=== PATIENT | female | born 1995 | race Caucasian/White ===

== ENCOUNTER 2017-01-19 17:50 | Emergency (ER) | payer OTHER ==
--- NOTE | 2017-01-19 18:39 | XR ---
EXAMINATION TYPE: XR chest 2V DATE OF EXAM: 01/19/2017 6:33 PM COMPARISON: NONE HISTORY: Fever and cough TECHNIQUE: Frontal and lateral views of the chest are obtained. FINDINGS: Heart and mediastinum are normal. Lungs are clear. Diaphragm is normal. Bony thorax is int act. IMPRESSION: Normal chest
[2017-01-19 18:46] LABS: Appearance,Urine Cloudy (Clear); Bacteria,Urine Rare /hpf; Bilirubin,Urine Negative (Negative); Glucose,Urine (UA) Negative (Negative); Ketones,Urine Negative (Negative); Leukocyte Esterase,Urine Negative (Negative); Mucus,Urine Rare /hpf; Nitrite,Urine Negative (Negative); PH, Urine 6.5 (5.0-8.0); Particle Count 5733; Protein,Urine Negative (Negative); RBC,Urine 1 /hpf (0-5); Specific Gravity,Urine 1.014 (1.001-1.035); Squamous Epithelial Cell,Urine 9 /hpf (0-4); UA Billing (MACRO vs. MICRO) MICRO; Urobilinogen,Urine <2.0 mg/dL (<2.0); WBC,Urine 1 /hpf (0-5)
[2017-01-19] MEDS ORDERED: IBUPROFEN 600 MG TAB PO STA (18:53)
--- NOTE | 2017-01-19 18:57 | ED ---
General Adult HPI - General Chief complaint: Fever Stated complaint: congestion Time Seen by Provider: 01/19/17 18:01 Source: patient Mode of arrival: ambulatory Limitations: no limitations - History of Present Illness Initial comments: Patient is a 21-year-old female presenting to the emergency department with initial chief complaint of cough and congestion for approximately 2 days. She also reports that she's had a fever. She denies taking any medications. She states that she has had a lot of congestion. Patient reports that she is somewhat new to the area. She states that she was born in [place]. As I interviewed the patient, she reported that she is able to feel in sense other people and other surroundings. She reports that she can feel other peoples pain. She states that she is trying to get her life together but she feels as if she needs a psychiatrist. She denies any suicidal or homicidal ideations. Patient reports that she does have auditory hallucinations. She does not seek a psychiatrist at this time. Patient reports that she was brought to the emergency department by her uncle. As interviewing the patient she would change her tone of voice with different sentances, and speak in a [place] Accent occasionally. - Related Data Previous Rx's Medication Instructions Recorded Azithromycin [Zithromax Z-pack] 250 mg PO DIRECTED #6 tab 01/19/17 Ibuprofen [Motrin] 600 mg PO Q6HR PRN #20 tab 01/19/17 Allergies Allergy/AdvReac Type Severity Reaction Status Date / Time No Known Allergies Allergy Verified 01/19/17 18:20 Review of Systems ROS Statement: Those systems with pertinent positive or pertinent negative responses have been documented in the HPI. ROS Other: All systems not noted in ROS Statement are negative. Past Medical History Past Medical History: No Reported History History of Any Multi-Drug Resistant Organisms: None Reported Past Surgical History: No Surgical Hx Reported Past Psychological History: No Psychological Hx Reported Smoking Status: Current every day smoker Past Alcohol Use History: Occasional Past Drug Use History: None Reported General Exam - General Exam Comments Initial Comments: 21 year old female, no acute distress. Limitations: no limitations General appearance: alert, in no apparent distress Head exam: Present: atraumatic, normocephalic, normal inspection Eye exam: Present: normal appearance, PERRL, EOMI. Absent: scleral icterus, conjunctival injection, periorbital swelling ENT exam: Present: normal exam, mucous membranes moist Neck exam: Present: normal inspection. Absent: tenderness, meningismus, lymphadenopathy Respiratory exam: Present: normal lung sounds bilaterally. Absent: respiratory distress, wheezes, rales, rhonchi, stridor Cardiovascular Exam: Present: regular rate, normal rhythm, normal heart sounds. Absent: systolic murmur, diastolic murmur, rubs, gallop, clicks GI/Abdominal exam: Present: soft, normal bowel sounds. Absent: distended, tenderness, guarding, rebound, rigid Extremities exam: Present: normal inspection, full ROM, normal capillary refill. Absent: tenderness, pedal edema, joint swelling, calf tenderness Back exam: Present: normal inspection, full ROM Neurological exam: Present: alert, oriented X3, CN II-XII intact Psychiatric exam: Present: normal mood, depressed. Absent: normal affect ( Patient has a flat affect. She seems to be responding to internal stimuli.), agitated, anxious, flat affect, manic, homicidal ideation, suicidal ideation Skin exam: Present: warm, dry, intact, normal color. Absent: rash Course Vital Signs 01/19/17 01/19/17 17:57 20:22 Temperature 99.8 F H 98.0 F Pulse Rate 94 83 Respiratory 20 18 Rate Blood Pressure 139/74 123/71 O2 Sat by Pulse 99 99 Oximetry Medical Decision Making - Medical Decision Making Patient is a 21-year-old Female with initial complaint of cough, chest congestion and fever. Influenza screen is negative. Chest x-ray was reviewed to be negative. While the patient was being interviewed it did appear The patient is here that she had been responding to internal stimuli. She reports that she needs to see psychiatrist. She does not have any counselous or menal health professionals at this time or takes any medications. She denies any suicidal or homicidal ideations. Patient will kept repeating to me that she can feel other peoples sensations in pain and needs to heal herself in order to be able to heal others. Patient does appear to be unkempt. Patient was cleared for psych evaluation. AFter evaluation, psychiatrist states that patient can follow up with outpatient treatment. Patient given resources and promises to follow up. She adamently denies suicidal ideation and homicidal ideation, she agrees to safety contract. She will be placed on azithromycin for cough and given Motrin for her fever. Patient understands treatment plan and will comply. - Lab Data Lab Results 01/19/17 01/19/17 01/19/17 Range/Units 18:10 18:20 18:26 Urine Color Urine Appearance (Clear) Urine pH (5.0-8.0) Ur Specific [place] (1.001-1.035) Urine Protein (Negative) Urine Glucose (UA) (Negative) Urine Ketones (Negative) Urine Blood (Negative) Urine Nitrate (Negative) Urine Bilirubin (Negative) Urine Urobilinogen (<2.0) mg/dL Ur Leukocyte Esterase (Negative) Urine RBC (0-5) /hpf Urine WBC (0-5) /hpf Ur Squamous Epith Cells (0-4) /hpf Urine Bacteria (None) /hpf Urine Mucus (None) /hpf Urine HCG, Qual Not Detected (Not Detectd) Urine Opiates Screen Not Detected (NotDetected) Ur Oxycodone Screen Not Detected (NotDetected) Urine Methadone Screen Not Detected (NotDetected) Ur Propoxyphene Screen Not Detected (NotDetected) Ur Barbiturates Screen Not Detected (NotDetected) U Tricyclic Antidepress Not Detected (NotDetected) Ur Phencyclidine Scrn Not Detected (NotDetected) Ur Amphetamines Screen Not Detected (NotDetected) U Methamphetamines Scrn Not Detected (NotDetected) U Benzodiazepines Scrn Not Detected (NotDetected) Urine Cocaine Screen Not Detected (NotDetected) U Marijuana (THC) Screen Not Detected (NotDetected) Influenza Type A RNA Not Detected (Not Detectd) Influenza Type B (PCR) Not Detected (Not Detectd) 01/19/17 Range/Units 18:26 Urine Color Yellow Urine Appearance Cloudy H (Clear) Urine pH 6.5 (5.0-8.0) Ur Specific [place] 1.014 (1.001-1.035) Urine Protein Negative (Negative) Urine Glucose (UA) Negative (Negative) Urine Ketones Negative (Negative) Urine Blood Negative (Negative) Urine Nitrate Negative (Negative) Urine Bilirubin Negative (Negative) Urine Urobilinogen <2.0 (<2.0) mg/dL Ur Leukocyte Esterase Negative (Negative) Urine RBC 1 (0-5) /hpf Urine WBC 1 (0-5) /hpf Ur Squamous Epith Cells 9 H (0-4) /hpf Urine Bacteria Rare H (None) /hpf Urine Mucus Rare H (None) /hpf Urine HCG, Qual (Not Detectd) Urine Opiates Screen (NotDetected) Ur Oxycodone Screen (NotDetected) Urine Methadone Screen (NotDetected) Ur Propoxyphene Screen (NotDetected) Ur Barbiturates Screen (NotDetected) U Tricyclic Antidepress (NotDetected) Ur Phencyclidine Scrn (NotDetected) Ur Amphetamines Screen (NotDetected) U Methamphetamines Scrn (NotDetected) U Benzodiazepines Scrn (NotDetected) Urine Cocaine Screen (NotDetected) U Marijuana (THC) Screen (NotDetected) Influenza Type A RNA (Not Detectd) Influenza Type B (PCR) (Not Detectd) Disposition Clinical Impression: Upper respiratory infection, Fever Disposition: HOME SELF-CARE Condition: Good Instructions: Fever in Adults (ED) Additional Instructions: Patient arrives to follow-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 Complete antibiotic prescription and take Tylenol as instructed. Return to the emergency department if any alarming signs or symptoms occur. Prescriptions: Azithromycin [Zithromax Z-pack] 250 mg PO DIRECTED #6 tab Ibuprofen [Motrin] 600 mg PO Q6HR PRN #20 tab PRN Reason: Fever Referrals: Tenisha Lancaster MD [STAFF PHYSICIAN] - 1-2 days Time of Disposition: 20:14
[2017-01-19 20:23] VITALS: BP 123/71; PULSE 83; RESP 18; TEMP 98
== END 2017-01-19 20:23 | disposition home or self-care (01) ==
LOC: EC 17:50
DX: J06.9 Acute upper respiratory infection, unspecified (principal); R44.0 Auditory hallucinations; F17.200 Nicotine dependence, unspecified, uncomplicated
CPT/HCPCS: 71020; 80306; 81001; 81025; 82075; 87502; 99283

== ENCOUNTER 2017-04-18 11:03 | Inpatient (IN) | payer MEDICAID, OTHER ==
[2017-04-18] MEDS ORDERED: LORazepam 2 MG/ML SYRINGE IV STA (11:22)
--- NOTE | 2017-04-18 12:00 | ED ---
General Adult HPI - General Chief complaint: Psychiatric Symptoms Stated complaint: mental health Time Seen by Provider: 04/18/17 11:21 Source: patient, police, RN notes reviewed, old records reviewed Mode of arrival: ambulatory Limitations: no limitations - History of Present Illness Initial comments: Chief complaint and history of present illness this is a 21-year-old female on no court-ordered pickup for mental health evaluation. Patient states she does not know why she is here. In referencing the court-ordered pickup grandmother stated that she didn't observed jennifer putting Epsom salts and rubbing alcohol into her food because "" it cleanses her inside the body. Her grandmother is also observed her sitting in a quiet room not watching TV are talking to anyone then she'll begin laughing for no reason and does not make sense when asked about it. Patient did admit to me that she has heard voices and seeing things. But refuses to say what what the voices tell her to do or what she sees. Grandmother also states that she paces the hallway at home without expiration. Grandmother also states) he has a history of using drugs including meth and pain pills for 5 years apparently not currently using meth but she does still prescription medications and does not matter to her what kind she steals grandmother even says that she shoots Epsom salts in her arms. Grandmother also states that after the family dog was hit by a car and killed jennifer dug up the buried dog and cut the dog open remove this intestine was cooked it and ate it. The patient is also resisted going to any [facility] for further evaluation so she was ordered by Court pickup for evaluation in the emergency room. - Related Data Home Medications Medication Instructions Recorded Confirmed No Known Home Medications [No 04/18/17 04/18/17 Known Home Medications] Allergies Allergy/AdvReac Type Severity Reaction Status Date / Time No Known Allergies Allergy Verified 04/18/17 12:40 Review of Systems ROS Statement: Those systems with pertinent positive or pertinent negative responses have been documented in the HPI. Review of systems at this time the patient denies any irregularities denies doing drugs denies chest pain shows breath GI/ problems. She does admit to hearing voices and seeing things. Denies having any mental health issues in the past. Denies doing drugs. All systems reviewed patient denies any chronic medical problems no chronic medical problems denies any surgeries. Denies any ALLERGIES. Denies taking any medications. Does not know of any ankle problems in the family. She does admit to smoking and occasional alcohol use ROS Other: All systems not noted in ROS Statement are negative. Past Medical History Past Medical History: No Reported History History of Any Multi-Drug Resistant Organisms: None Reported Past Surgical History: No Surgical Hx Reported Past Psychological History: No Psychological Hx Reported Smoking Status: Current every day smoker Past Alcohol Use History: Occasional Past Drug Use History: None Reported General Exam - General Exam Comments Initial Comments: General: The patient is awake and alert, in no distress, and does not appear acutely ill. Patient appears calm. Does not Set with questions concerning past behavior. [id number] denies any problems in the past or current. Vital signs temp 99.2 pulse 87 respiratory rate 20 pulse ox 100% room air blood pressure 129/70 Eye: Pupils are equal, round and reactive to light, extra-ocular movements are intact ; there is normal conjunctiva bilaterally. No signs of icterus. Ears, nose, mouth and throat: There are moist mucous membranes . Neck: The neck is supple, there is no tenderness no anterior cervical lymphadenopathy , thyroid not enlarged. Cardiovascular: There is a regular rate and rhythm. No murmur, rub or gallop is appreciated. Respiratory: Lungs are clear to auscultation, respirations are non-labored, breath sounds are equal. No wheezes, stridor, rales, or rhonchi. Gastrointestinal: Soft, non-distended, non-tender abdomen without masses or organomegaly noted. There is no rebound or guarding present. No CVA tenderness. Bowel sounds are unremarkable. Back: There is no tenderness to palpation in the midline. There is no obvious deformity. No rashes noted. Patient has a tattoo in the middle of her back. Musculoskeletal: Normal ROM, no tenderness, There is no pedal edema. There is no calf tenderness or swelling. Sensation intact. Pulses equal bilaterally 2+. Neurological: CN II-XII intact, There are no obvious motor or sensory deficits. Coordination appears grossly intact. Speech is normal. No evidence of any focal or lateralizing findings. Skin: Skin is warm and dry and no rashes or lesions are noted. Psychiatric: Cooperative, denies being depressed or suicidal. He does agree that she hears voices and sees things. Denies any past mental health issues. Limitations: no limitations Course Vital Signs 04/18/17 11:16 Temperature 99.2 F Pulse Rate 87 Respiratory 20 Rate Blood Pressure 129/70 O2 Sat by Pulse 100 Oximetry Medical Decision Making - Medical Decision Making Medical decision making; the patient's here for psychiatric evaluation, court ordered. She's also been doing some bizarre behavior with chemicals she reportedly is putting on her body in her food. The patient's labs show toxicology negative for drugs of abuse. No aspirin or Tylenol. Urine is clean no signs of infection. Urine test negative. White count 9 hemoglobin 14 hematocrit 42. Alcohol 0.patient's potassium is 4.2 with a BUN 15 creatinine 0.76 GFR greater than 60. Anus TM ALT both elevated. The patient was evaluated by the psychiatric nurse patient be admitted to [facility]. I completed a certificate for admission. - Lab Data Result diagrams: 04/18/17 11:47 04/18/17 11:47 Lab Results 04/18/17 04/18/17 04/18/17 Range/Units 11:47 11:47 11:47 WBC 9.5 (3.8-10.6) k/uL RBC 4.88 (3.80-5.40) m/uL Hgb 14.2 (11.4-16.0) gm/dL Hct 42.8 (34.0-46.0) % MCV 87.7 (80.0-100.0) fL MCH 29.2 (25.0-35.0) pg MCHC 33.3 (31.0-37.0) g/dL RDW 13.6 (11.5-15.5) % Plt Count 391 (150-450) k/uL Neutrophils % 56 % Lymphocytes % 30 % Monocytes % 6 % Eosinophils % 3 % Basophils % 1 % Neutrophils # 5.3 (1.3-7.7) k/uL Lymphocytes # 2.9 (1.0-4.8) k/uL Monocytes # 0.6 (0-1.0) k/uL Eosinophils # 0.3 (0-0.7) k/uL Basophils # 0.1 (0-0.2) k/uL Sodium (137-145) mmol/L Potassium (3.5-5.1) mmol/L Chloride (98-107) mmol/L Carbon Dioxide (22-30) mmol/L Anion Gap mmol/L BUN (7-17) mg/dL Creatinine (0.52-1.04) mg/dL Est GFR (MDRD) Af Amer (>60 ml/min/1.73 sqM) Est GFR (MDRD) Non-Af (>60 ml/min/1.73 sqM) Glucose (74-99) mg/dL Calcium (8.4-10.2) mg/dL Total Bilirubin (0.2-1.3) mg/dL AST (14-36) U/L ALT (9-52) U/L Alkaline Phosphatase (38-126) U/L Total Protein (6.3-8.2) g/dL Albumin (3.5-5.0) g/dL Urine Color Yellow Urine Appearance Cloudy H (Clear) Urine pH 7.0 (5.0-8.0) Ur Specific [place] 1.015 (1.001-1.035) Urine Protein Negative (Negative) Urine Glucose (UA) Negative (Negative) Urine Ketones Negative (Negative) Urine Blood Negative (Negative) Urine Nitrite Negative (Negative) Urine Bilirubin Negative (Negative) Urine Urobilinogen <2.0 (<2.0) mg/dL Ur Leukocyte Esterase Negative (Negative) Urine WBC <1 (0-5) /hpf Ur Squamous Epith Cells 18 H (0-4) /hpf Urine Bacteria Rare H (None) /hpf Urine Mucus Rare H (None) /hpf Urine HCG, Qual (Not Detectd) Salicylates <1.0 mg/dL Urine Opiates Screen Not Detected (NotDetected) Ur Oxycodone Screen Not Detected (NotDetected) Urine Methadone Screen Not Detected (NotDetected) Ur Propoxyphene Screen Not Detected (NotDetected) Acetaminophen <10.0 ug/mL Ur Barbiturates Screen Not Detected (NotDetected) U Tricyclic Antidepress Not Detected (NotDetected) Ur Phencyclidine Scrn Not Detected (NotDetected) Ur Amphetamines Screen Not Detected (NotDetected) U Methamphetamines Scrn Not Detected (NotDetected) U Benzodiazepines Scrn Not Detected (NotDetected) Urine Cocaine Screen Not Detected (NotDetected) U Marijuana (THC) Screen Not Detected (NotDetected) 04/18/17 04/18/17 Range/Units 11:47 11:47 WBC (3.8-10.6) k/uL RBC (3.80-5.40) m/uL Hgb (11.4-16.0) gm/dL Hct (34.0-46.0) % MCV (80.0-100.0) fL MCH (25.0-35.0) pg MCHC (31.0-37.0) g/dL RDW (11.5-15.5) % Plt Count (150-450) k/uL Neutrophils % % Lymphocytes % % Monocytes % % Eosinophils % % Basophils % % Neutrophils # (1.3-7.7) k/uL Lymphocytes # (1.0-4.8) k/uL Monocytes # (0-1.0) k/uL Eosinophils # (0-0.7) k/uL Basophils # (0-0.2) k/uL Sodium 141 (137-145) mmol/L Potassium 4.2 (3.5-5.1) mmol/L Chloride 104 (98-107) mmol/L Carbon Dioxide 27 (22-30) mmol/L Anion Gap 10 mmol/L BUN 15 (7-17) mg/dL Creatinine 0.76 (0.52-1.04) mg/dL Est GFR (MDRD) Af Amer >60 (>60 ml/min/1.73 sqM) Est GFR (MDRD) Non-Af >60 (>60 ml/min/1.73 sqM) Glucose 97 (74-99) mg/dL Calcium 10.2 (8.4-10.2) mg/dL Total Bilirubin 0.6 (0.2-1.3) mg/dL AST 64 H (14-36) U/L ALT 110 H (9-52) U/L Alkaline Phosphatase 72 (38-126) U/L Total Protein 8.6 H (6.3-8.2) g/dL Albumin 4.6 (3.5-5.0) g/dL Urine Color Urine Appearance (Clear) Urine pH (5.0-8.0) Ur Specific [place] (1.001-1.035) Urine Protein (Negative) Urine Glucose (UA) (Negative) Urine Ketones (Negative) Urine Blood (Negative) Urine Nitrite (Negative) Urine Bilirubin (Negative) Urine Urobilinogen (<2.0) mg/dL Ur Leukocyte Esterase (Negative) Urine WBC (0-5) /hpf Ur Squamous Epith Cells (0-4) /hpf Urine Bacteria (None) /hpf Urine Mucus (None) /hpf Urine HCG, Qual Not Detected (Not Detectd) Salicylates mg/dL Urine Opiates Screen (NotDetected) Ur Oxycodone Screen (NotDetected) Urine Methadone Screen (NotDetected) Ur Propoxyphene Screen (NotDetected) Acetaminophen ug/mL Ur Barbiturates Screen (NotDetected) U Tricyclic Antidepress (NotDetected) Ur Phencyclidine Scrn (NotDetected) Ur Amphetamines Screen (NotDetected) U Methamphetamines Scrn (NotDetected) U Benzodiazepines Scrn (NotDetected) Urine Cocaine Screen (NotDetected) U Marijuana (THC) Screen (NotDetected) Disposition Clinical Impression: Psychosis, paranoid Disposition: TRANSFER TO PSYCH HOSP/UNIT Condition: Serious Referrals: None,Stated [Primary Care Provider] - 1-2 days
[2017-04-18 12:14] LABS: Appearance,Urine Cloudy (Clear); Bacteria,Urine Rare /hpf; Bilirubin,Urine Negative (Negative); Glucose,Urine (UA) Negative (Negative); Ketones,Urine Negative (Negative); Leukocyte Esterase,Urine Negative (Negative); Mucus,Urine Rare /hpf; Nitrite,Urine Negative (Negative); Particle Count 2849; Protein,Urine Negative (Negative); Specific Gravity,Urine 1.015 (1.001-1.035); Squamous Epithelial Cell,Urine 18 /hpf (0-4); UA Billing (MACRO vs. MICRO) MICRO; Urobilinogen,Urine <2.0 mg/dL (<2.0); WBC,Urine <1 /hpf (0-5)
[2017-04-18 12:17] LABS: Acetaminophen <10.0 ug/mL; Salicylate <1.0 mg/dL
[2017-04-18 12:18] LABS: Basophils # (A) 0.1 k/uL (0-0.2); Basophils % (A) 1 %; CHCM 33.2; Eosinophils # (A) 0.3 k/uL (0-0.7); Eosinophils % (A) 3 %; HCT 42.8 % (34.0-46.0); HDW 2.51; HGB 14.2 gm/dL (11.4-16.0); Luc # (Auto) 0.33; Luc % (Auto) 4; Lymphocytes # (A) 2.9 k/uL (1.0-4.8); Lymphocytes % (A) 30 %; MCH 29.2 pg (25.0-35.0); MCHC 33.3 g/dL (31.0-37.0); MCV 87.7 fL (80.0-100.0); Mean Platelet Volume 6.3; Monocytes # (A) 0.6 k/uL (0-1.0); Monocytes % (A) 6 %; Neutrophils # (A) 5.3 k/uL (1.3-7.7); Neutrophils % (A) 56 %; RBC 4.88 m/uL (3.80-5.40); RDW 13.6 % (11.5-15.5); WBC 9.5 k/uL (3.8-10.6); WBC (Perox) 8.76
--- NOTE | 2017-04-18 12:27 | XR ---
EXAMINATION TYPE: XR chest 1V portable DATE OF EXAM: 04/18/2017 HISTORY: Short of breath. REFERENCE: Previous study dated 01/19/2017. FINDINGS: The lungs are clear. Pleural space are clear. Heart size is normal. IMPRESSION: NORMAL CHEST.
[2017-04-18 13:38] LABS: ALT 110 U/L (9-52); AST 64 U/L (14-36); Alkaline Phosphatase 72 U/L (38-126); Anion Gap 10 mmol/L; Blood Urea Nitrogen 15 mg/dL (7-17); Calcium 10.2 mg/dL (8.4-10.2); Carbon Dioxide 27 mmol/L (22-30); Chloride 104 mmol/L (98-107); Glucose 97 mg/dL (74-99); Non-African American GFR(MDRD) >60 (>60 ml/min/1.73 sqM); Potassium 4.2 mmol/L (3.5-5.1); Sodium 141 mmol/L (137-145); Total Bilirubin 0.6 mg/dL (0.2-1.3); Total Protein 8.6 g/dL (6.3-8.2)
[2017-04-18] MEDS ORDERED: ZIPRASIDONE 20 MG VIAL IM PRN (17:08)
[2017-04-18] MEDS ORDERED: MAGNESIUM HYDROXIDE 2,400 MG/10 ML CUP PO PRN (17:08)
[2017-04-18] MEDS ORDERED: LORazepam 1 MG TAB PO PRN (17:08)
[2017-04-18] MEDS ORDERED: MAG HYDROX/AL HYDROX/SIMETH 30 ML CUP PO PRN (17:08)
[2017-04-18] MEDS ORDERED: LORazepam 2 MG/ML SYRINGE IM PRN (17:12)
[2017-04-18] MEDS: NICOTINE 7MG/24HR PATCH TRANSDERM SCH (18:16)
[2017-04-19] MEDS: NICOTINE 7MG/24HR PATCH TRANSDERM SCH (09:46)
[2017-04-19 10:08] LABS: Basophils # (A) 0.1 k/uL (0-0.2); Basophils % (A) 1 %; CH 28.6; Eosinophils # (A) 0.3 k/uL (0-0.7); Eosinophils % (A) 3 %; HCT 46.7 % (34.0-46.0); HDW 2.38; HGB 14.6 gm/dL (11.4-16.0); Luc # (Auto) 0.19; Luc % (Auto) 2; Lymphocytes # (A) 2.6 k/uL (1.0-4.8); Lymphocytes % (A) 30 %; MCHC 31.2 g/dL (31.0-37.0); MCV 89.9 fL (80.0-100.0); Mean Platelet Volume 6.3; Monocytes # (A) 0.5 k/uL (0-1.0); Monocytes % (A) 5 %; Neutrophils # (A) 5.2 k/uL (1.3-7.7); Neutrophils % (A) 59 %; RBC 5.19 m/uL (3.80-5.40); RDW 13.7 % (11.5-15.5); WBC 8.8 k/uL (3.8-10.6); WBC (Perox) 9.17
[2017-04-19 10:41] LABS: ALT 127 U/L (9-52); AST 73 U/L (14-36); Alkaline Phosphatase 70 U/L (38-126); Anion Gap 14 mmol/L; Blood Urea Nitrogen 18 mg/dL (7-17); Calcium 10.4 mg/dL (8.4-10.2); Carbon Dioxide 26 mmol/L (22-30); Chloride 102 mmol/L (98-107); Glucose 102 mg/dL (74-99); Non-African American GFR(MDRD) >60 (>60 ml/min/1.73 sqM); Potassium 3.9 mmol/L (3.5-5.1); Sodium 142 mmol/L (137-145); Total Protein 8.8 g/dL (6.3-8.2)
[2017-04-19] MEDS ORDERED: risperiDONE 1 MG TAB PO STA (13:25)
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
--- NOTE | 2017-04-19 15:52 | P.CONS ---
History of Present Illness - Reason for Consult Consult date: 04/19/17 Medical management - History of Present Illness This is a 21-year-old female with no past medical history and no primary care physician. She is a tobacco smoker. She denies any history of psychiatric problems or psychiatric admissions. She does have history of methamphetamine use but denies any use recently. Patient states that she was picked up by the cell coverer and brought in the hospital and she does not know why. She denies any depression, suicidal thoughts, homicidal thoughts. AST 73, ALT 127. TSH 1.150. Urinalysis was cloudy, nitrate and leukoesterase negative. Urine drug screen was negative. Review of Systems All systems: negative Constitutional: Denies chills, Denies fever Eyes: denies blurred vision, denies pain Ears, nose, mouth and throat: Denies headache, Denies sore throat Cardiovascular: Denies chest pain, Denies shortness of breath Respiratory: Denies cough Gastrointestinal: Denies abdominal pain, Denies diarrhea, Denies nausea, Denies vomiting Genitourinary: Denies dysuria, Denies hematuria Musculoskeletal: Denies myalgias Integumentary: Denies pruritus, Denies rash Neurological: Denies numbness, Denies weakness Psychiatric: Denies anxiety, Denies depression Endocrine: Denies fatigue, Denies weight change Past Medical History Past Medical History: No Reported History History of Any Multi-Drug Resistant Organisms: None Reported Past Surgical History: No Surgical Hx Reported Past Psychological History: No Psychological Hx Reported Smoking Status: Current every day smoker Past Alcohol Use History: Occasional Additional Past Alcohol Use History / Comment(s): Patient is a smoker of a half a pack per day since she was 9 years of age. She denies any medical marijuana , marijuana, street drug or alcohol use. She does have history of methamphetamine use. Past Drug Use History: None Reported - Past Family History Father Additional Family Medical History / Comment(s): Father is alive in his 50s with no major medical problems. Mother Additional Family Medical History / Comment(s): Mother is alive at age 57 with no major medical problems. Patient does not have any brothers or sisters. Patient does not have any children. Medications and Allergies Home Medications Medication Instructions Recorded Confirmed Type No Known Home Medications [No 04/18/17 04/18/17 History Known Home Medications] Allergies Allergy/AdvReac Type Severity Reaction Status Date / Time No Known Allergies Allergy Verified 04/18/17 17:24 Physical Exam Vitals: Vital Signs Temp Pulse Pulse Resp BP BP Pulse Ox 04/19/17 06:53 97.9 F 72 16 106/55 04/18/17 17:26 98.3 F 84 20 120/79 04/18/17 16:14 98.7 F 84 18 148/83 99 Gen: This is a 21-year-old female. She appears to be in no acute distress. HEENT: Head is atraumatic, normocephalic. Pupils equal, round. Sclerae is anicteric. NECK: Supple. No JVD. No lymphadenopathy. No thyromegaly. LUNGS: Clear to auscultation. No wheezes or rhonchi. No intercostal retractions. HEART: Regular rate and rhythm. No murmur. ABDOMEN: Soft. Bowel sounds are present. No masses. No tenderness. EXTREMITIES: No pedal edema. No calf tenderness. NEUROLOGICAL: Patient is awake, alert and oriented x3. Cranial nerves 2 through 12 are grossly intact. Results CBC & Chem 7: 04/19/17 09:52 04/19/17 09:52 Labs: Abnormal Lab Results - Last 24 Hours (Table) 04/18/17 04/19/17 04/19/17 Range/Units 11:47 09:52 09:52 Hct 46.7 H (34.0-46.0) % BUN 18 H (7-17) mg/dL Glucose 102 H (74-99) mg/dL Calcium 10.4 H (8.4-10.2) mg/dL AST 64 H 73 H (14-36) U/L ALT 110 H 127 H (9-52) U/L Total Protein 8.6 H 8.8 H (6.3-8.2) g/dL Assessment and Plan Plan: 1. Psychotic behavior. Patient admitted to the mental health unit. Continue current plan of care. 2. Tobacco use and dependence. Continue nicotine patch. 3. Previous methamphetamine use and patient denies any active drug use. Impression and plan of care have been directed as dictated by the signing physician. Elvira Rivera nurse practitioner acting as scribe for signing physician.
[2017-04-19] MEDS ORDERED: risperiDONE 1 MG TAB PO SCH (21:00)
[2017-04-20] MEDS: NICOTINE 7MG/24HR PATCH TRANSDERM SCH (10:01)
[2017-04-20 12:53] LABS: GGT 34 U/L (12-43)
[2017-04-20 12:56] LABS: INR 1.1 (<1.1); Partial Thromboplastin Time 24.2 sec (22.0-30.0); Prothrombin Time 10.6 sec (9.0-12.0)
[2017-04-20 13:24] LABS: Hepatitis B Surface Ag Index 0.08
[2017-04-20 13:30] LABS: Hepatitis B Core IgM Index 0.29
[2017-04-20 13:41] LABS: Hepatitis C Virus IgG Ab Reactive (Negative)
--- NOTE | 2017-04-20 14:18 | P.PN ---
Progress Note - Text INTERVERAL HISTORY: Patient in room, came when called. Little eye contact. Answering questions with yes or I don't know. When asked about her sleep last night, she mumbled something then stated " bright eyed and busy tailed" When asked about past hx of depression, anxiety or schizophrenia, she answered "all of them", could not recall names of medication but then stated "I don't take medications" no reason given. MENTAL STATUS EXAM: Patient alert and oriented 2, poor eye contact, poorly groomed and disheveled, hair uncombed, dirty, in street clothing. Speech low volume, reduced rate and production, no spontaneous speech answering with yes, no, I don't know, maybe, not sure. +paucity of thought and content Uninteligble, mumbling, when asked to repeat will say "yes, no" +TB +responding to internal stimuli, initially said yes to auditory hallucination but then said she did not know. . Memory impaired Cognition low average Unable to test for memory. Mood blunted, affect flat, congruent with mood. Denies suicidal ideation, denies homicidal ideation. Insight none; Judgment impaired A: Patient continues with severe psychosis, responding to internal stimuli, thought blocking, paucity of thought and content. Psychosis unspecified Rule out schizophreniform Rule out schizoaffective disorder PLAN: . Patient continues to need inpatient psychiatric admission for safety, clarification of diagnosis, and treatment of psychosis. Suicide precautions, 15 minute checks. Start invega 3mg now, and daily. Will plan on using injection once clear she can tolerate and court ordered treatment. Encourage to attend groups if tolerating Have not been able to contact family, numbers on petition are not working.
[2017-04-20] MEDS: PALIPERIDONE 3 MG TAB.ER.24 PO SCH (14:32)
[2017-04-21] MEDS: PALIPERIDONE 3 MG TAB.ER.24 PO SCH (09:27)
[2017-04-21] MEDS: NICOTINE 7MG/24HR PATCH TRANSDERM SCH (09:46)
[2017-04-21 10:20] LABS: ALT 129 U/L (9-52); AST 78 U/L (14-36); Alkaline Phosphatase 62 U/L (38-126); Anion Gap 8 mmol/L; Blood Urea Nitrogen 15 mg/dL (7-17); Carbon Dioxide 26 mmol/L (22-30); Chloride 105 mmol/L (98-107); Glucose 86 mg/dL (74-99); Non-African American GFR(MDRD) >60 (>60 ml/min/1.73 sqM); Potassium 4.6 mmol/L (3.5-5.1); Sodium 139 mmol/L (137-145); Total Bilirubin 0.9 mg/dL (0.2-1.3); Total Protein 8.1 g/dL (6.3-8.2)
--- NOTE | 2017-04-21 17:01 | P.PN ---
Progress Note - Text Interval history: Patient seen in cross coverage today for Dr. Alcnatara. She reports that her mood is improved. She does not voice any adverse side effects. Sleep and appetite seem to be stable. Mental status exam: She is alert and cooperative. There may be some thought blocking at times. She describes her mood is doing better. She denies any thoughts of harm to self or others. She denies any hallucinations. She does not make any shun delusional statements. She does not show any agitation. Her answers are brief. Plan: Patient will be maintained on current psychotropic medication regimen. We 'll monitor for any side effects monitor her ongoing response. We'll continue to cover this patient for Dr. Alcantara through the weekend.
[2017-04-22] MEDS: NICOTINE 7MG/24HR PATCH TRANSDERM SCH (09:30)
[2017-04-22] MEDS: PALIPERIDONE 3 MG TAB.ER.24 PO SCH (09:31)
[2017-04-22 10:30] LABS: ALT 135 U/L (9-52); AST 75 U/L (14-36); Alkaline Phosphatase 66 U/L (38-126); Anion Gap 9 mmol/L; Blood Urea Nitrogen 16 mg/dL (7-17); Carbon Dioxide 25 mmol/L (22-30); Chloride 106 mmol/L (98-107); Glucose 85 mg/dL (74-99); Non-African American GFR(MDRD) >60 (>60 ml/min/1.73 sqM); Potassium 4.3 mmol/L (3.5-5.1); Sodium 140 mmol/L (137-145); Total Bilirubin 0.8 mg/dL (0.2-1.3); Total Protein 7.9 g/dL (6.3-8.2)
--- NOTE | 2017-04-22 13:42 | P.PN ---
Progress Note - Text Interval history: Patient is seen in cross coverage today in for Dr. Alcantara. She reports that she slept okay last night and is eating well. She is taking her invega and does not voice any adverse side effects. Mental status exam: She is alert and cooperative with the interview. Her answers are pretty brief. Her affect overall is restricted. She describes her mood as "decent." She denies any thoughts of harm to self or others. She denies any hallucinations. She does not make any shun delusional statements. She does not show any agitation. Plan: We'll maintain current psychotropic medication regimen. Dr. Alcantara to resume care this patient starting tomorrow.
[2017-04-23 08:10] LABS: ALT 133 U/L (9-52); AST 68 U/L (14-36); Alkaline Phosphatase 64 U/L (38-126); Anion Gap 9 mmol/L; Blood Urea Nitrogen 17 mg/dL (7-17); Calcium 10.1 mg/dL (8.4-10.2); Carbon Dioxide 27 mmol/L (22-30); Chloride 105 mmol/L (98-107); Glucose 89 mg/dL (74-99); Non-African American GFR(MDRD) >60 (>60 ml/min/1.73 sqM); Potassium 4.3 mmol/L (3.5-5.1); Sodium 141 mmol/L (137-145); Total Bilirubin 0.7 mg/dL (0.2-1.3); Total Protein 8.1 g/dL (6.3-8.2)
[2017-04-23] MEDS: PALIPERIDONE 3 MG TAB.ER.24 PO SCH (11:18)
[2017-04-23] MEDS: NICOTINE 7MG/24HR PATCH TRANSDERM SCH (11:19)
[2017-04-23] MEDS ORDERED: PALIPERIDONE IM 234 MG/1.5 ML SYG IM STA (11:26)
--- NOTE | 2017-04-23 11:42 | P.PN ---
Progress Note - Text INTERVERAL HISTORY: Discussed at treatment team meeting, reviewed record, met with patient. Patient signed for deferral. Patient seen at medication window, asked her to come to my office, she agreed, and then never came. Nursing staff found her back in her room in bed. Patient malodorous and disheveled. Little spontaneous speech. When asked questions still saying " well yes well no " Patient reported that she has to go to court, we discussed that she signed the deferral notice so that she doesn't have to go to court but that she has agreed to treatment. Discussed with her treatment plan that the medicine that she's been taking in a pill form will now be given to her as an injection, she agreed. Little eye contact. MENTAL STATUS EXAM: Patient alert and oriented 2, poor eye contact, poorly groomed and disheveled, malodorous, hair uncombed, dirty, in street clothing. Speech low volume, reduced rate and production, no spontaneous speech answering with yes, no, I don't know, maybe, not sure. +paucity of thought and content Uninteligble, mumbling, when asked to repeat will say "yes, no" +TB +responding to internal stimuli, Memory impaired Cognition low average Unable to test for memory. Mood blunted, affect flat, congruent with mood. Denies suicidal ideation, denies homicidal ideation. Insight none; Judgment impaired A: Patient continues with severe psychosis, responding to internal stimuli, thought blocking, paucity of thought and content. 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 Patient continues to need inpatient psychiatric admission for safety, clarification of diagnosis, and treatment of psychosis. Suicide precautions, 15 minute checks. Start invega 234IM now Continue PO paliperidone. AIMS negative Encourage to attend groups if tolerating SW to try to reach family for history. LFTs still evevated but decreasing.
[2017-04-24] MEDS: NICOTINE 7MG/24HR PATCH TRANSDERM SCH (10:10)
[2017-04-24] MEDS: PALIPERIDONE 3 MG TAB.ER.24 PO SCH (10:10)
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
[2017-04-25] MEDS: NICOTINE 7MG/24HR PATCH TRANSDERM SCH (10:55)
[2017-04-25] MEDS: PALIPERIDONE 3 MG TAB.ER.24 PO SCH (10:55)
--- NOTE | 2017-04-25 11:49 | P.PN ---
Progress Note - Text INTERVERAL HISTORY: Discussed at treatment team meeting, reviewed record, met with patient. Patient on deferral. Patient in her room did not respond to overhead page BRAKE RELINER went to her room and woke her up. Patient accompanied jingle writer to office, along the way asked patient if she knew my name, she said no. Told her my name, as I have every day. Patient states she is okay, has no questions, has no concerns or worries, doesn' t asked when she is getting out, She was oriented to Person, place, April 29 2017. 100-7 = 93-7 was 86-7 = 70 1-7 = 60 1-7 = 50 4-7 = 30 3-7 = 26-7 = 19-7 equals 14-7 = 6-7 = -1 3 out of 3 items recalled at 0 minutes; 2 out of 3 items recalled after 5 minutes. Unable to interpret "a rolling stone gathers no mathew" When patient was doing serial sevens she jumped up and walked over to the filing cabinet stood in front of it staring at the folders/binders. When asked why she did that she replied "I have to concentrate" Patient denies any problems with medication. Little spontaneous speech. Little eye contact. Not attending any groups, isolating from other patients. MENTAL STATUS EXAM: Patient alert and oriented 3, poor eye contact, poorly groomed, in street clothing. Speech low volume, reduced rate and production, no spontaneous speech answering with yes, no, I don't know, maybe, not sure. Trailing off, unfinished thoughts, +paucity of thought and content Unintelligible, mumbling, when asked to repeat will say "yes, no" +TB +responding to internal stimuli, Memory impaired Cognition low average Mood blunted, but patient is now smiling more often; affect flat, congruent with mood. Denies suicidal ideation, denies homicidal ideation. Insight none; Judgment impaired A: Patient continues with severe psychosis, responding to internal stimuli, thought blocking, paucity of thought and content. 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 Patient continues to need inpatient psychiatric admission for safety, clarification of diagnosis, and treatment of psychosis. Suicide precautions, 15 minute checks. invega shot due next Sunday. Continue PO paliperidone. AIMS negative Encourage to attend groups if tolerating
[2017-04-26] MEDS: PALIPERIDONE 3 MG TAB.ER.24 PO SCH (09:31)
[2017-04-26] MEDS: NICOTINE 7MG/24HR PATCH TRANSDERM SCH (09:31)
--- NOTE | 2017-04-26 11:53 | P.PN ---
Progress Note - Text INTERVERAL HISTORY: Discussed at treatment team meeting, reviewed record, met with patient. Patient on deferral. Patient was in the activity room today after activity I called her to the office she came. I asked her how she was she said fine and then asked "how are you" she was also able to remember my name. Patient smiled more today still did not have spontaneous speech, but when asked about how her visit was with family she stated it was fine, took about a minute to recall who came to visit her, said it was her uncles, could not recall what they spoke about. Today when asked about hearing voices she stopped to answer smiled, said no when I offered the possibility of maybe she smiled again and said maybe Patient is essentially unchanged however she is showing a little more affect and today she was able to interact in a socially appropriate way, asking how I was. Patient denies any problems with medication. Little spontaneous speech. Little eye contact. Seen in group today. MENTAL STATUS EXAM: Patient alert and oriented 3, poor eye contact, poorly groomed, in street clothing. Speech low volume, reduced rate and production, no spontaneous speech answering with yes, no, I don't know, maybe, not sure. Trailing off, unfinished thoughts, +paucity of thought and content Unintelligible, mumbling, when asked to repeat will say "yes, no" +TB +responding to internal stimuli, Memory impaired Cognition low average Mood blunted, but patient is now smiling more often; affect flat, congruent with mood. Denies suicidal ideation, denies homicidal ideation. Insight none; Judgment impaired A: Patient continues with severe psychosis, responding to internal stimuli, thought blocking, paucity of thought and content. 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 Patient continues to need inpatient psychiatric admission for safety and treatment of psychosis. Suicide precautions, 15 minute checks. invega shot due next Sunday. Continue PO paliperidone. AIMS negative Encourage to attend groups if tolerating
[2017-04-27] MEDS: NICOTINE 7MG/24HR PATCH TRANSDERM SCH (09:57)
[2017-04-27] MEDS: PALIPERIDONE 3 MG TAB.ER.24 PO SCH (09:57)
--- NOTE | 2017-04-27 10:08 | P.PN ---
Progress Note - Text INTERVERAL HISTORY: Discussed at treatment team meeting, reviewed record, met with patient. Patient on deferral. Patient was in bed refusing to get up. Patient asks when she can go home. Asked what she'll do, "I'll go home" Could not provide any other thought. Staff reports she is irritable today. Staff also noted that she attended a group yesterday, participated and was appropriate in her responses Patient denies any problems with medication. Little spontaneous speech. Little eye contact. MENTAL STATUS EXAM: Patient alert and oriented, poor eye contact, poorly groomed, in bed. Speech low volume, reduced rate and production, no spontaneous speech answering with yes, no, I don't know, maybe, not sure. Trailing off, unfinished thoughts, +paucity of thought and content Today unable to determine if responding to internal stimuli but reduced interaction. Memory impaired Cognition low average Mood blunted, but patient is now smiling more often; affect flat, congruent with mood. Denies suicidal ideation, denies homicidal ideation. Insight none; Judgment impaired A: Patient continues with severe psychosis, thought blocking, paucity of thought and content. 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 Patient continues to need inpatient psychiatric admission for safety and treatment of psychosis. Suicide precautions, 15 minute checks. invega shot due next Sunday. Will D/C PO paliperidone. Encourage to attend groups if tolerating
[2017-04-28] MEDS: NICOTINE 7MG/24HR PATCH TRANSDERM SCH (09:19)
--- NOTE | 2017-04-28 20:31 | PN ---
DATE OF SERVICE: 04/28/2017 CHIEF COMPLAINT: The patient was admitted due to severe disorganized behavior, including ingesting inedibles and toxins. She had auditory hallucinations and delusional thoughts. INTERVAL HISTORY: Patient has been doing fair. She had a quiet evening last night. She slept 6 hours today. She has been up and about. Yesterday she did not attend any groups. Today she did attend one group. She was described as withdrawn, disheveled, garbled, disorganized and low energy. She has been cooperative. She is taking medications appropriately. According to Dr. Espinoza yesterday she was in bed and refusing to get up. She was minimally responsive today. She seems to be doing a little better. She has been out in the day area. When I talked with her, she answered questions appropriately though provided only minimal information. She had no complaints relating to her medications. She seemed to indicate that her thoughts are clear. Her thoughts were clear. She seems to be fairly organized in her behavior. She has not had change in her general health. She tolerates her psychotropic medications. MENTAL STATUS: Patient sat without restlessness. She had a slowed manner. She sat in a slumped posture. Eye contact was fair. She answered questions with brief responses. Some of the time when she made statements, she seemed to have some mumbling and it was hard to understand what she said. When asked to clarify, she was able to be more clear in her expression. Her thoughts were coherent. Her affect was flat. Her mood reserved. She did not appear to be significantly distressed. There was no immediate evidence for thought disorder. ASSESSMENT: I will continue current diagnosis and treatment plan. We will continue to make efforts to engage the patient in individual and group therapeutic activities. I will continue psychotropic medications the same including Invega Sustenna for which she has received her initial injection. She understands that a follow-up injection is scheduled. She is in agreement with treatment. She is aware that she would likely continue in the hospital until she receives her second dose of Invega. We will continue to focus on stabilization and discharge planning. [facility] SYSTEMMayelin
[2017-04-29] MEDS: NICOTINE 7MG/24HR PATCH TRANSDERM SCH (10:07)
[2017-04-29] MEDS: IBUPROFEN 600 MG TAB PO PRN (15:49)
--- NOTE | 2017-04-30 05:55 | PN ---
DATE OF SERVICE: 04/29/2017 CHIEF COMPLAINT: The patient was admitted due to severe disorganized behavior including ingesting inedibles and toxins. She reported auditory hallucinations and delusional thoughts. INTERVAL HISTORY: Patient has been doing fairly well. She had a quiet evening last night. She slept well. She has been showing gradual progress in her mood. She tends to wander about the unit. She does not interact too much with others. She seems to prefer to keep to herself. She has attended groups. She presents with low energy, some anxiety and some disordered thinking. Her behavior is appropriate. She says that her mood has been better. She is aware of some of the discharge planning issues that need to be addressed including her living situation and appropriate follow-up care. She understands that the plan was for her to be discharged fairly soon after she received her follow-up Invega injection if things are stable for her. She has not had change in her general health. She tolerates the psychotropic medications. MENTAL STATUS: Patient gave fair eye contact. Psychomotor activity was slow. Speech was monotone. She answered questions with brief responses. She did not say a lot. Her thoughts were clear and coherent. She spoke a little bit more clearly then she has done on previous interviews. She seemed a little more connected to the interview process. She asked some appropriate questions. Her affect was a little blunted. She smiled some. Her mood was quiet though not down or depressed. She did not appear to be distressed. ASSESSMENT: I will continue the current diagnosis and treatment plan. We will continue psychotropic medications the same namely Invega Sustenna. She is due for her follow-up injection Sunday or Sunday. I reviewed the typical discharge planning issues that will need to be addressed as part of her discharge. She seems to tolerate her Invega well and there seems to be improvement and good response to the medication. I would anticipate she will be discharged early in the week.
[2017-04-30] MEDS: NICOTINE 7MG/24HR PATCH TRANSDERM SCH (10:20)
--- NOTE | 2017-04-30 12:55 | P.PN ---
Progress Note - Text INTERVERAL HISTORY: Discussed at treatment team meeting, reviewed record, met with patient. Patient on deferral. Staff reported that patient was found eating shampoo and soap over the weekend. Today patient was unable to state why she did it. Asked if she was hearing voices she again says mmm maybe, no. Patient again with poor eye contact not as severe as when she first came in, but definitely a decrease in the interaction. Providing little spontaneous speech. MENTAL STATUS EXAM: Patient alert and oriented, poor eye contact, poorly groomed, in hallway today with nurse. Speech low volume, reduced rate and production, no spontaneous speech answering with yes, no, I don't know, maybe, not sure. +paucity of thought and content Today unable to determine if responding to internal stimuli but reduced interaction. Memory impaired Cognition low average Mood blunted, affect flat, congruent with mood. Denies suicidal ideation, denies homicidal ideation. Insight none; Judgment impaired A: Patient continues with severe psychosis, thought blocking, paucity of thought and content. 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 Patient continues to need inpatient psychiatric admission for safety and treatment of psychosis. Suicide precautions, 15 minute checks. invega shot due this Sunday. Will restart PO paliperidone. Encourage to attend groups if tolerating
[2017-04-30] MEDS: PALIPERIDONE 6 MG TAB.ER.24 PO SCH (13:28)
--- NOTE | 2017-05-01 09:57 | P.PN ---
Progress Note - Text INTERVERAL HISTORY: Discussed at treatment team meeting, reviewed record, met with patient. Patient on deferral. Patient has not made any attempt at securing shampoo and soap. Today she is said she is feeling sleepy, did not get out of bed, made minimal attempt at speaking to resume writer, No eye contact today, no spontaneous speech. Staff reports she is not associating with other residents, gave nonsensical response in group this morning MENTAL STATUS EXAM: Patient alert and oriented, poor eye contact, poorly groomed, in hallway today with nurse. Speech low volume, reduced rate and production, no spontaneous speech answering with yes, no, I don't know, maybe, not sure. +paucity of thought and content Today unable to determine if responding to internal stimuli but reduced interaction. Memory impaired Cognition low average Mood blunted, affect flat, congruent with mood. Denies suicidal ideation, denies homicidal ideation. Insight none; Judgment impaired A: Patient continues with severe psychosis, thought blocking, paucity of thought and content. Appears that the D/C of PO Paliperidone may have caused a decrease in her function, ie increase of psychosis. Restarting 6mg may be cause of increase sedation. 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 Patient continues to need inpatient psychiatric admission for safety and treatment of psychosis. Suicide precautions, 15 minute checks. invega 156mg IM today. Continue PO paliperidone 6mg. Encourage to attend groups if tolerating
[2017-05-01] MEDS ORDERED: PALIPERIDONE IM 156 MG/ML SYG IM ONE (11:00)
[2017-05-01] MEDS: PALIPERIDONE 6 MG TAB.ER.24 PO SCH (11:34)
[2017-05-01] MEDS: NICOTINE 7MG/24HR PATCH TRANSDERM SCH (11:34)
[2017-05-01] MEDS: IBUPROFEN 600 MG TAB PO PRN (16:49)
[2017-05-02] MEDS: NICOTINE 7MG/24HR PATCH TRANSDERM SCH (08:21)
[2017-05-02] MEDS: PALIPERIDONE 6 MG TAB.ER.24 PO SCH (08:21)
[2017-05-02 09:55] VITALS: BMI 29.8
--- NOTE | 2017-05-02 10:00 | P.PN ---
Progress Note - Text INTERVERAL HISTORY: Discussed at treatment team meeting, reviewed record, met with patient. Patient on deferral. Patient has not made any attempt at securing shampoo and soap. Today she is found in bed again, but wakes with ease stating "I 've been up for breakfast" Today when asked how she was she said fine, and asked how I was. States she is feeling okay cannot describe any difference from today to yesterday. Today when asked if she is hearing any voices she makes a complete sentence know I don't hear voices, then when asked if she feels like someone can control her thoughts she stated "I don't think they can control my thoughts that they control me". She could not identify anybody in particular that might be doing this. Fair eye contact today, full sentances, but no spontaneous speech. Staff reports she is not associating with other residents, gave nonsensical response in group this morning MENTAL STATUS EXAM: Patient alert and oriented, fair eye contact, poorly groomed, in bed. Speech low volume, reduced rate and production, still no spontaneous speech but has completed several sentences. answering with yes, no, I don't know, maybe, not sure. +paucity of thought and content No clear evidence of responding to internal stimuli, increase in interaction today with socially appropriate response. Memory impaired Cognition low average Mood blunted, affect flat, congruent with mood. Denies suicidal ideation, denies homicidal ideation. Insight none; Judgment impaired A: Patient continues with severe psychosis, but better TP with completed thoughts (3) and sentances. Received the second Invega injection and still receiving 6mg PO Paliperidone. 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 Patient continues to need inpatient psychiatric admission for safety and treatment of psychosis. Suicide precautions, 15 minute checks. Continue PO paliperidone 6mg. Will see if she is appropriate/attends groups. If continued improved TP, communication and ADLS will consider D/C early next week. Encourage to attend groups if tolerating
[2017-05-02] MEDS: IBUPROFEN 600 MG TAB PO PRN (14:16)
[2017-05-03] MEDS: NICOTINE 7MG/24HR PATCH TRANSDERM SCH (09:46)
[2017-05-03] MEDS: PALIPERIDONE 6 MG TAB.ER.24 PO SCH (09:46)
--- NOTE | 2017-05-03 12:58 | P.PN ---
Progress Note - Text INTERVERAL HISTORY: Discussed at treatment team meeting, reviewed record, met with patient. Patient on deferral. Family came to visit. Patient has not made any attempt at securing shampoo and soap. Staff was worried that she had blood on her hands from her menses. Today she was walking in hallway, had already had shower. She states she is feeling okay cannot describe any difference from today to yesterday. States she only hears voices of people around her, but again says she is controled by others sometimes, cannot identify who. Fair eye contact today, full sentances, but no spontaneous speech. Staff reports she is not associating with other residents, gave nonsensical response in group this morning MENTAL STATUS EXAM: Patient alert and oriented x3, fair eye contact, poorly groomed, in bed. Speech low volume, reduced rate and production, still no spontaneous speech but has completed several sentences. Improved thought content No clear evidence of responding to internal stimuli, increase in interaction today with socially appropriate response. Memory impaired Cognition low average Unable to do serial 7's, just counted down from 100. She was able to recall 3/3 at 0 minutes, and 3/3 at 5 minutes. WORLD/[employer] Identified Obama as the current president, and Montiel as the president previous to him. Mood neutral smiled a couple of times, affect constricted, congruent with mood. Denies suicidal ideation, denies homicidal ideation. Insight none; Judgment impaired A: Patient continues with severe psychosis, but better TP with completed thoughts (3) and sentances. Able to recall items, spell world, Received the second Invega injection 2 days ago still receiving 6mg PO Paliperidone. 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 Patient continues to need inpatient psychiatric admission for safety and treatment of psychosis. Suicide precautions, 15 minute checks. Continue PO paliperidone 6mg. Will see if she is appropriate/attends groups. If continued improved TP, communication and ADLS will consider D/C early next week. Encourage to attend groups if tolerating
[2017-05-03] MEDS: IBUPROFEN 600 MG TAB PO PRN (14:47)
--- NOTE | 2017-05-04 08:39 | P.PN ---
Progress Note - Text INTERVERAL HISTORY: Discussed at treatment team meeting, reviewed record, met with patient. Patient on deferral. Staff report that she has been more visible will attend groups in the afternoon. Today patient was walking in the hallway asked her to come to my office she did She states that she is fine, not hearing any voices. States she did not take a shower today but that she took 2 yesterday so that should be enough. She spoke to Shyla perinatal social worker about possibly going to rehab. This was initiated by Michelle, on her own. This is the first time she has initiated conversation, and relevant. She says she did like to go and that she called yesterday but no answer, did not think to call again, will call today. When we spoke about possible discharge next week, she began to cry asked why and she stated "I'm happy but I'm also sad I didn't mean to do what I did"asked her what she meant and she states she was curious after the dog . Fair eye contact today, full sentances, first time having spontaneous speech. MENTAL STATUS EXAM: Patient alert and oriented x3, fair eye contact, poorly groomed, in bed. Speech low volume, reduced rate and production, still no spontaneous speech but has completed several sentences. Improved thought content No clear evidence of responding to internal stimuli, increase in interaction today with socially appropriate response. Memory impaired Cognition low average Mood neutral smiled a couple of times, tearful, affect full range decreased intensity, congruent with mood. Denies suicidal ideation, denies homicidal ideation. Insight none; Judgment impaired A: Patient continues with severe psychosis, but improving, better TP with completed thoughts and sentances, appropriate and now initiating conversation. Received the second Invega injection 3 days ago still receiving 6mg PO Paliperidone. 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 Patient continues to need inpatient psychiatric admission for safety and treatment of psychosis. Suicide precautions, 15 minute checks. Continue PO paliperidone 6mg. If continued improved TP, communication and ADLS will consider D/C next week. Encourage to attend groups if tolerating
[2017-05-04] MEDS: NICOTINE 7MG/24HR PATCH TRANSDERM SCH (10:28)
[2017-05-04] MEDS: PALIPERIDONE 6 MG TAB.ER.24 PO SCH (10:28)
[2017-05-04] MEDS: IBUPROFEN 600 MG TAB PO PRN ×2 (11:01→18:33)
[2017-05-05] MEDS: NICOTINE 7MG/24HR PATCH TRANSDERM SCH (08:49)
[2017-05-05] MEDS: PALIPERIDONE 6 MG TAB.ER.24 PO SCH (08:49)
--- NOTE | 2017-05-05 09:59 | P.PN ---
Progress Note - Text Interval history: The patient is found in her room she follows me to an interview room. He psychiatric evaluation and notes were reviewed. The patient was admitted for symptoms of psychosis and has received injections of invega systemic. She states she doesn't know why she was admitted she is not aware of any symptoms that she had prior to her presentation to the hospital. She reports that she is sleeping at night. She has been eating although she typically skips breakfast. She reports attending groups but again she was found in her room during group time. She is hoping to be discharged mid next week and plans to return to a family member's home. Mental status exam: The patient is a female appearing her stated age. She has short hair she is dressed in hospital gowns she has a disheveled appearance she appears tired but is not lethargic. She speaks with a southern accent and indicates that she is from [place]. Eye contact is poor she is seated in her chair facing away from me. No spontaneous speech she does provide answers to questions asked. She demonstrates very little affect of change and appears blunted. She denies having any symptoms in terms of mood and anxiety or psychosis. She specifically denies having any auditory or visual hallucinations and she is endorsing no specific delusions. It's likely that she is underreporting to facilitate a discharge. Insight and judgment limited as she is unable to speak to the reasons why she was admitted. She is oriented to person place and date. She demonstrates no verbal or physical aggressiveness. There may be some psychomotor slowing to a mild extent. Plan: The patient will continue on her current antipsychotic medication. Vital signs reviewed. We will continue to monitor her for safety. She is encouraged to attend group after this session and she indicates she will.
[2017-05-05] MEDS: IBUPROFEN 600 MG TAB PO PRN ×2 (10:55→16:18)
[2017-05-06] MEDS: PALIPERIDONE 6 MG TAB.ER.24 PO SCH (09:38)
[2017-05-06] MEDS: NICOTINE 7MG/24HR PATCH TRANSDERM SCH (09:38)
[2017-05-06] MEDS: IBUPROFEN 600 MG TAB PO PRN ×2 (09:39→15:23)
--- NOTE | 2017-05-06 10:32 | P.PN ---
Progress Note - Text Interval history: The patient is found in the hallway she follows me to an interview room. She reports her mood is fine she continues to state she is hoping to be discharged soon. She remains compliant with medication recommendations. She has been selectively attending groups. There is no report of any agitated behavior. She states she typically skips breakfast but otherwise is eating. She reports she slept well last night staff documented 7 hours of sleep. Mental status exam: The patient is alert she is dressed in her own clothing she has a disheveled appearance her hair is not brushed. Eye contact is intermittent speech is fluent and spontaneous at times. She maintains a constricted affect. She reports no suicidal or homicidal ideation intent or plan she is endorsing no auditory or visual hallucinations she endorses no specific delusions. She seated calmly in the chair she does not appear to be bonding to hallucinations. She demonstrates no verbal or physical aggressiveness. No abnormal involuntary movements observed. Insight and judgment improving. Answers are brief to questions asked but are linear. Plan: The patient will continue on her current psychotropic medication. She is encouraged to continue participating in the milieu. We will monitor her for safety. Vital signs reviewed.
[2017-05-07 06:19] VITALS: TEMP 98.1
[2017-05-07] MEDS: PALIPERIDONE 6 MG TAB.ER.24 PO SCH (09:30)
[2017-05-07] MEDS: NICOTINE 7MG/24HR PATCH TRANSDERM SCH (09:30)
[2017-05-07] MEDS: IBUPROFEN 600 MG TAB PO PRN (12:05)
--- NOTE | 2017-05-07 15:44 | P.PN ---
Progress Note - Text INTERVERAL HISTORY: Discussed at treatment team meeting, reviewed record, met with patient. Patient on deferral. Staff report that she has been more visible and more talkative, will attend groups in the afternoon. Patient approached me today stating that she had a family meeting coming up and wanted to know when she would be discharged, I said we would wait until the family meeting occurred and find out how things go. She said that's fine Patient approached me later in the day stated she had her family meeting and that her grandmother said that she can come home to her house and as long as she goes to [facility] takes her medicine that she can stay with her grandmother. Patient states she is doing fine asked about [place] she doesn't remember. She is taking showers but staff is still worried that she might eat it so she's not having soap or shampoo. Fair eye contact today, full sentances, with increased spontaneous speech. MENTAL STATUS EXAM: Patient alert and oriented x3, fair eye contact, poorly groomed, in bed. Speech low volume, reduced rate and production, still no spontaneous speech but has completed several sentences. Improved thought content No clear evidence of responding to internal stimuli, increase in interaction today with socially appropriate response. Memory impaired Cognition low average Mood neutral smiled a couple of times, tearful, affect full range decreased intensity, congruent with mood. Denies suicidal ideation, denies homicidal ideation. Insight none; Judgment impaired A: Patient continues with severe psychosis, but improving, better TP with completed thoughts and sentances, appropriate and now initiating conversation. Received the second Invega injection 3 days ago still receiving 6mg PO Paliperidone. 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 Patient continues to need inpatient psychiatric admission for safety and treatment of psychosis. Suicide precautions, 15 minute checks. Continue PO paliperidone 6mg. plus monthly injection If continued improved TP, communication and ADLS consider D/C this week or Sunday week. Encourage to attend groups if tolerating
--- NOTE | 2017-05-08 08:40 | P.PN ---
Progress Note - Text INTERVERAL HISTORY: Discussed at treatment team meeting, reviewed record, met with patient. Patient on deferral. Family meeting took place yesterday with grandmother and 2 aunts. Was very productive and family is very supportive of Nithya. Staff report that she has been more visible and more talkative, will attend groups in the afternoon. Today she was out in the hallway walking asked her she'll come back to my office she followed. I noted that she looked as if she had taken a shower and washed her hair she said she had and that staff had given her shampoo and soap. She did not eat it. Patient said that her grandmother said she can live with her if she acts right. Patient became tearful discussing discharge, said she will miss us. We talked about her brother who is in [place] right now for using amphetamines, and that I am worried that if he's around her that she might use that she states she will not. AIMS was negative Good eye contact today, full sentances, with increased spontaneous speech. However she still appears to be internally preoccupied, she has never reported hallucinations but after discussion with family and her behavior, her statement about being "curious" might be command hallucinations. MENTAL STATUS EXAM: Patient alert and oriented x3, fair eye contact, poorly groomed, in bed. Speech low volume, reduced rate and production, still no spontaneous speech but has completed several sentences. Improved thought content No clear evidence of responding to internal stimuli, increase in interaction today with socially appropriate response. Memory impaired Cognition low average Mood neutral smiled a couple of times, tearful, affect full range decreased intensity, congruent with mood. Denies suicidal ideation, denies homicidal ideation. Insight none; Judgment impaired A: Patient continues to improve, still auditory hallucinations, she seems internally preoccupied but now she will interact and with more than yes or no as answers, occasionally spontaneous sentences. Still receiving 6mg PO Paliperidone. 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 Patient continues to need inpatient psychiatric admission for safety and treatment of psychosis. Suicide precautions, 15 minute checks. Continue PO paliperidone 6mg. plus monthly injection due May 18 If continued improved TP, communication and ADLS D/C tomorrow. Encourage to attend groups if tolerating
[2017-05-08] MEDS: PALIPERIDONE 6 MG TAB.ER.24 PO SCH (09:37)
[2017-05-08] MEDS: NICOTINE 7MG/24HR PATCH TRANSDERM SCH (09:37)
[2017-05-08] MEDS: IBUPROFEN 600 MG TAB PO PRN ×3 (09:38→20:46)
[2017-05-09 06:23] VITALS: BP 112/56; PULSE 63; RESP 16
--- NOTE | 2017-05-09 08:48 | P.DS ---
Providers Date of admission: 04/18/17 16:44 Expected date of discharge: 05/09/17 Attending physician: Nieves Alcantara MD Consults: 04/18/17 17:08 Consult Physician Routine Consulting Provider: Armida Figueredo Consult Reason/Comments: Medical Management Do you want consulting provider notified?: Yes Primary care physician: Stated None Hospital Course: ADMISSION HISTORY: This patient is a 21-year-old single female who was admitted to the mental health unit through emergency room brought by police on a petition from her grandmother stating that she has observed putting Epsom salts and rubbing alcohol into her food because it "cleanses her inside body" Nithya has also been observed sitting in a quiet room not watching TV or talking to anyone and she will be laughing for no reason she will not make sense when she is asked questions. The first CERT was signed by physician in the emergency room and the second CERT will be signed by myself Dr. Nieves Alcantara. HISTORY OF PRESENT ILLNESS: The patient cannot say why she is here, says the police came and picked her. She lives with her aunt. She is unable to give any relevant history. A handwritten note from the grandmother accompanies patient. "..... will put laundry detergent pods into her drinks put its in a dark drink so no one can see it Nithya will also put cigarette butts pencil shavings in tofu Tilex and bleach in her bath because it "cleanses her outside body" Nithya will go days without changing her clothes. She often paces back and forth in the hallway at night when asked why she cannot give an answer. Nithya has a history of using meth and pain pills Nithya is currently not using meth but stills prescription meds does not matter what kind. Will also use Epsom salts on her arms. Nithya was evaluated at [facility] in late December because she dug up the family dog,she cut the dog open and removed its intestines cooked it and then ate it. [facility] staff believe it was drug induced Nithya was released after 2 hours. HOSPITAL COURSE: Patient was unable to give much history. She would reply with either a yes or no and then she would change it and say maybe. She frequently would not say anything at all but just make a noise. She agreed to the deferral. Patient was started on intake orally, increase up to 9 mg without any problems. There was no improvement noted either. She was then given an injection of intake at 256 mg, and still given the 9 mg by mouth. She did not attend groups and when she did walk into the group she frequently was unable to participate. Although she continued to deny hearing voices she was responding to internal stimuli. By the second week with the second injection she was beginning to speak more but still primarily one-word without any full sentences. She had severe paucity of thought and content, continued with internal preoccupation. She had begun to respond a bit more to people she was noted in 1 group to be able to answer her name. She slowly answered questions with a few words. I stopped inVega by mouth and she slipped back into the severe paucity of content and thought and eating shampoo and soap. Restarted Invega 6 mg and it took her 3 days to begin to have ruiz sentences and respond appropriately. When family saw her this past weekend they thought that she was close to her baseline she was beginning to show some emotions she was tearful when she found out that her brother was in [facility] for using meth. She began to smile more and would initiate conversation, socially appropriate asking how people are when she is asked how she is. Patient always said no to hearing voices but it was noted towards the end of her hospitalization that whenever we talked about something that she had done in the past like the dog incident or the eating of shampoo she would respond "I was just curious" asked her if when she was "curious" "she was hearing voices telling her to be curious. She agreed and this coincided with her affirmation that people could control her. So although she never endorsed hearing voices I believe that her her statement of being curious may be command hallucinations. No drugs of abuse. She was noted to have elevated lfts. ADMISSION DIAGNOSES: Psychosis unspecified Rule out schizophreniform Rule out schizoaffective disorder DISCHARGE DIAGNOSES: Psychosis unspecified versus schizoaffective disorder PLAN: . Discharge today. She will be seen at [facility], she should be having her monthly injection of invega around May 18, it should be the maximum dose. She should also continue to take the oral dose of Invega as well. She will has a follow up appt with PCP regarding HCV. Laboratory Tests 04/20/17 04/20/17 04/20/17 12:24 12:24 12:24 Sodium Potassium Chloride Carbon Dioxide Anion Gap BUN Creatinine Est GFR (MDRD) Af Amer Est GFR (MDRD) Non-Af Glucose Calcium Total Bilirubin AST ALT Double Strand DNA Ab POSITIVE H Anti-DNA Ab Interp 13.0 Anti-Mitochondrial Ab 6.2 Anti-Smooth Muscle Ab 5 Hepatitis A IgM Ab NEGATIVE Hep Bs Antigen Negative Hep B Core IgM Ab NEGATIVE Hep C IgG Ab Reactive 04/23/17 07:33 Sodium 141 Potassium 4.3 Chloride 105 Carbon Dioxide 27 Anion Gap 9 BUN 17 Creatinine 0.84 Est GFR (MDRD) Af Amer >60 Est GFR (MDRD) Non-Af >60 Glucose 89 Calcium 10.1 Total Bilirubin 0.7 AST 68 H ALT 133 H Double Strand DNA Ab Anti-DNA Ab Interp Anti-Mitochondrial Ab Anti-Smooth Muscle Ab Hepatitis A IgM Ab Hep Bs Antigen Hep B Core IgM Ab Hep C IgG Ab Pertinent Studies: none Procedures: none Plan - Discharge Summary New Discharge Prescriptions: New Paliperidone [Invega] 6 mg PO DAILY #30 tab Paliperidone IM [Invega Sustenna] 234 mg IM DIRECTED #1 ml Nicotine 7Mg/24Hr Patch [Habitrol] 1 patch TRANSDERM DAILY #14 patch Discharge Medication List Nicotine 7Mg/24Hr Patch [Habitrol] 1 patch TRANSDERM DAILY #14 patch 05/09/17 [ Rx] Paliperidone IM [Invega Sustenna] 234 mg IM DIRECTED #1 ml 05/09/17 [Rx] Paliperidone [Invega] 6 mg PO DAILY #30 tab 05/09/17 [Rx] Follow up Appointment(s)/Referral(s): [facility] [Outside] - 05/14/17 9:00 am (Intake 05/14/17 at 9:00 am w/ [facility]) None,Stated [Primary Care Provider] - 1-2 days Patient Instructions/Handouts: How to Stop Smoking (DC), Schizoaffective Disorder (DC), Suicide Prevention for Adults (DC) Activity/Diet/Wound Care/Special Instructions: Follow-up with Dr. Mccarty Cable [facility]orer upon discharge for elevated LFT's and history of Hepatitis C Please call No alcohol or street drugs, activity as tolerated, diet as tolerated, remove firearms from home. Follow up with outpatient provider as set up at time of discharge, follow up with PCP in one to two days. Call the crisis line or [phone] if having thoughts of hurting himself or anyone else. Make sure to follow up with [facility] and receive Invega Injection on Discharge Disposition: HOME SELF-CARE
[2017-05-09] MEDS: NICOTINE 7MG/24HR PATCH TRANSDERM SCH (08:59)
[2017-05-09] MEDS: PALIPERIDONE 6 MG TAB.ER.24 PO SCH (08:59)
[2017-05-09] MEDS ORDERED: PALIPERIDONE IM 234 MG/1.5 ML SYG IM STA (09:00)
== END 2017-05-09 11:55 | disposition home or self-care (01) | DRG 885 ==
LOC: EC 11:03 → 3MHU 16:44
PROVIDERS: ADMIT Psychiatry & Neurology Addiction Medicine; ATTEND Psychiatry & Neurology Addiction Medicine
DX: F29 Unspecified psychosis not due to a substance or known physiological condition (principal); F25.9 Schizoaffective disorder, unspecified; F17.200 Nicotine dependence, unspecified, uncomplicated; Z87.898 Personal history of other specified conditions
CPT/HCPCS: 36415; 71010; 80053; 80074; 80306; 81001; 81025; 82075; 82140; 82977; 83516; 83520; 84443; 85025; 85610; 85730; 86225; 96374; 99285

== ENCOUNTER 2018-10-06 13:36 | Emergency (ER) | payer OTHER ==
[2018-10-06] MEDS ORDERED: SODIUM CHLORIDE 0.9% 1,000 ML IV STA (14:06)
[2018-10-06] MEDS ORDERED: ONDANSETRON 4 MG/2 ML VIAL IVP STA (14:06)
[2018-10-06] MEDS ORDERED: FAMOTIDINE 20 MG/2 ML VIAL IV STA (14:06)
--- NOTE | 2018-10-06 14:29 | ED ---
General Adult HPI - General Chief complaint: Nausea/Vomiting/Diarrhea Stated complaint: vomiting Time Seen by Provider: 10/06/18 14:02 Source: patient, RN notes reviewed Mode of arrival: ambulatory Limitations: no limitations - History of Present Illness Initial comments: Patient 23-year-old female presenting to the emergency room today with a chief complaint of symptoms of nausea vomiting over the last 3 days. Patient says she 's had multiple episodes of vomiting. No signs of blood. Admits to a few episodes of diarrhea. Patient does admit to abdominal cramping that comes and goes. Currently rates the abdominal pain 2/. Denies any other complaints or symptoms at this time. She does admit that other people also considered similar symptoms. Patient denies any recent fever, chills, shortness of breath, chest pain, back pain, numbness or tingling, dysuria or hematuria, constipation , headaches or visual changes, or any other complaints. - Related Data Previous Rx's Medication Instructions Recorded Nicotine 7Mg/24Hr Patch [Habitrol] 1 patch TRANSDERM DAILY #14 patch 05/09/17 Paliperidone IM [Invega Sustenna] 234 mg IM DIRECTED #1 ml 05/09/17 Paliperidone [Invega] 6 mg PO DAILY #30 tab 05/09/17 Loperamide [Imodium] 2 mg PO DIRECTED #20 capsule 10/06/18 Ondansetron Odt [Zofran ODT] 4 mg PO Q8HR PRN #20 tab 10/06/18 Allergies Allergy/AdvReac Type Severity Reaction Status Date / Time ibuprofen Allergy Swelling Verified 10/06/18 13:49 Review of Systems ROS Statement: Those systems with pertinent positive or pertinent negative responses have been documented in the HPI. ROS Other: All systems not noted in ROS Statement are negative. Past Medical History Past Medical History: No Reported History History of Any Multi-Drug Resistant Organisms: None Reported Past Surgical History: Tonsillectomy Past Psychological History: Schizophrenia Smoking Status: Current every day smoker Past Alcohol Use History: Occasional Past Drug Use History: None Reported - Past Family History Father Additional Family Medical History / Comment(s): Father is alive in his 50s with no major medical problems. Mother Additional Family Medical History / Comment(s): Mother is alive at age 57 with no major medical problems. Patient does not have any brothers or sisters. Patient does not have any children. General Exam - General Exam Comments Initial Comments: General: The patient is awake and alert, in no distress, and does not appear acutely ill. Eye: Pupils are equal, round and reactive to light. Extra-ocular movements are intact. No nystagmus. There is normal conjunctiva bilaterally. No signs of icterus. Ears, nose, mouth and throat: There are moist mucous membranes and no oral lesions. Neck: The neck is supple, there is no tenderness or JVD. Cardiovascular: There is a regular rate and rhythm. No murmur, rub or gallop is appreciated. Respiratory: Lungs are clear to auscultation, respirations are non-labored, breath sounds are equal. No wheezes, stridor, rales, or rhonchi. Gastrointestinal: Soft, non-distended, non-tender abdomen without masses or organomegaly noted. There is no rebound or guarding present. No CVA tenderness. Musculoskeletal: Normal ROM, no tenderness. Sensation intact. Strength 5/5. Pulses equal bilaterally 2+. Neurological: A&O x 3. CN II-XII intact, There are no obvious motor or sensory deficits. Coordination appears grossly intact. Speech is normal. Skin: Skin is warm and dry and no rashes or lesions are noted. Psychiatric: Cooperative, appropriate mood & affect, normal judgment. Limitations: no limitations Course Vital Signs 10/06/18 10/06/18 13:46 15:44 Temperature 98.1 F Pulse Rate 112 H 73 Respiratory 18 16 Rate Blood Pressure 126/78 100/67 O2 Sat by Pulse 100 98 Oximetry Medical Decision Making - Medical Decision Making Patient's labs been reviewed. Does show mildly elevated liver enzymes. Patient admits to history of hepatitis. Patient feeling much better at this time. Abdomen soft nontender. Patient has had symptoms of nausea vomiting and diarrhea over the last 3 days. Patient x-rays unremarkable. Patient doing well currently and feels comfortable being discharged home. Patient will be given nausea medication of Zofran along with Imodium for symptoms. Advised follow family doctor over the next 2 days return if symptoms increase worsen. - Lab Data Result diagrams: 10/06/18 14:21 10/06/18 14:21 Lab Results 10/06/18 10/06/18 10/06/18 Range/Units 14:21 14:21 14:21 WBC 7.5 (3.8-10.6) k/uL RBC 5.31 (3.80-5.40) m/uL Hgb 15.3 (11.4-16.0) gm/dL Hct 47.4 H (34.0-46.0) % MCV 89.3 (80.0-100.0) fL MCH 28.9 (25.0-35.0) pg MCHC 32.3 (31.0-37.0) g/dL RDW 13.9 (11.5-15.5) % Plt Count 323 (150-450) k/uL Neutrophils % 59 % Lymphocytes % 32 % Monocytes % 5 % Eosinophils % 1 % Basophils % 1 % Neutrophils # 4.4 (1.3-7.7) k/uL Lymphocytes # 2.4 (1.0-4.8) k/uL Monocytes # 0.4 (0-1.0) k/uL Eosinophils # 0.1 (0-0.7) k/uL Basophils # 0.1 (0-0.2) k/uL Sodium 143 (137-145) mmol/L Potassium 4.4 (3.5-5.1) mmol/L Chloride 109 H (98-107) mmol/L Carbon Dioxide 27 (22-30) mmol/L Anion Gap 7 mmol/L BUN 9 (7-17) mg/dL Creatinine 0.93 (0.52-1.04) mg/dL Est GFR (CKD-EPI)AfAm >90 (>60 ml/min/1.73 sqM) Est GFR (CKD-EPI)NonAf 86 (>60 ml/min/1.73 sqM) Glucose 100 H (74-99) mg/dL Calcium 9.8 (8.4-10.2) mg/dL Total Bilirubin 0.6 (0.2-1.3) mg/dL AST 49 H (14-36) U/L ALT 103 H (9-52) U/L Alkaline Phosphatase 68 (38-126) U/L Total Protein 7.9 (6.3-8.2) g/dL Albumin 4.1 (3.5-5.0) g/dL Amylase 58 (30-110) U/L Lipase 85 (23-300) U/L Urine Color Urine Appearance (Clear) Urine pH (5.0-8.0) Ur Specific [place] (1.001-1.035) Urine Protein (Negative) Urine Glucose (UA) (Negative) Urine Ketones (Negative) Urine Blood (Negative) Urine Nitrite (Negative) Urine Bilirubin (Negative) Urine Urobilinogen (<2.0) mg/dL Ur Leukocyte Esterase (Negative) Urine RBC (0-5) /hpf Urine WBC (0-5) /hpf Ur Squamous Epith Cells (0-4) /hpf Urine Mucus (None) /hpf Urine HCG, Qual Not Detected (Not Detectd) 10/06/18 Range/Units 14:21 WBC (3.8-10.6) k/uL RBC (3.80-5.40) m/uL Hgb (11.4-16.0) gm/dL Hct (34.0-46.0) % MCV (80.0-100.0) fL MCH (25.0-35.0) pg MCHC (31.0-37.0) g/dL RDW (11.5-15.5) % Plt Count (150-450) k/uL Neutrophils % % Lymphocytes % % Monocytes % % Eosinophils % % Basophils % % Neutrophils # (1.3-7.7) k/uL Lymphocytes # (1.0-4.8) k/uL Monocytes # (0-1.0) k/uL Eosinophils # (0-0.7) k/uL Basophils # (0-0.2) k/uL Sodium (137-145) mmol/L Potassium (3.5-5.1) mmol/L Chloride (98-107) mmol/L Carbon Dioxide (22-30) mmol/L Anion Gap mmol/L BUN (7-17) mg/dL Creatinine (0.52-1.04) mg/dL Est GFR (CKD-EPI)AfAm (>60 ml/min/1.73 sqM) Est GFR (CKD-EPI)NonAf (>60 ml/min/1.73 sqM) Glucose (74-99) mg/dL Calcium (8.4-10.2) mg/dL Total Bilirubin (0.2-1.3) mg/dL AST (14-36) U/L ALT (9-52) U/L Alkaline Phosphatase (38-126) U/L Total Protein (6.3-8.2) g/dL Albumin (3.5-5.0) g/dL Amylase (30-110) U/L Lipase (23-300) U/L Urine Color Yellow Urine Appearance Cloudy H (Clear) Urine pH 7.5 (5.0-8.0) Ur Specific [place] 1.022 (1.001-1.035) Urine Protein 2+ H (Negative) Urine Glucose (UA) Negative (Negative) Urine Ketones Negative (Negative) Urine Blood Negative (Negative) Urine Nitrite Negative (Negative) Urine Bilirubin Negative (Negative) Urine Urobilinogen 3.0 (<2.0) mg/dL Ur Leukocyte Esterase Trace H (Negative) Urine RBC <1 (0-5) /hpf Urine WBC 2 (0-5) /hpf Ur Squamous Epith Cells 44 H (0-4) /hpf Urine Mucus Few H (None) /hpf Urine HCG, Qual (Not Detectd) Disposition Clinical Impression: Nausea vomiting and diarrhea Disposition: HOME SELF-CARE Condition: Good Instructions: Acute Nausea and Vomiting (ED) Additional Instructions: Please use medication as discussed. Please follow-up with family doctor in the next 2 days of symptoms have not improved. Please return to emergency room if the symptoms increase or worsen or for any other concerns. Prescriptions: Loperamide [Imodium] 2 mg PO DIRECTED #20 capsule Ondansetron Odt [Zofran ODT] 4 mg PO Q8HR PRN #20 tab PRN Reason: Nausea Is patient prescribed a controlled substance at d/c from ED?: No Referrals: Rimma Bedolla MD [Primary Care Provider] - 1-2 days Time of Disposition: 15:48
[2018-10-06 14:38] LABS: Basophils # (A) 0.1 k/uL (0-0.2); Basophils % (A) 1 %; Eosinophils # (A) 0.1 k/uL (0-0.7); Eosinophils % (A) 1 %; HCT 47.4 % (34.0-46.0); HGB 15.3 gm/dL (11.4-16.0); Lymphocytes # (A) 2.4 k/uL (1.0-4.8); Lymphocytes % (A) 32 %; MCH 28.9 pg (25.0-35.0); MCHC 32.3 g/dL (31.0-37.0); MCV 89.3 fL (80.0-100.0); Mean Platelet Volume 6.7; Monocytes # (A) 0.4 k/uL (0-1.0); Monocytes % (A) 5 %; Neutrophils # (A) 4.4 k/uL (1.3-7.7); Neutrophils % (A) 59 %; Platelet Count 323 k/uL (150-450); RBC 5.31 m/uL (3.80-5.40); RDW 13.9 % (11.5-15.5); WBC 7.5 k/uL (3.8-10.6)
[2018-10-06 14:43] LABS: Appearance,Urine Cloudy (Clear); Bilirubin,Urine Negative (Negative); Blood,Urine Negative (Negative); Color,Urine Yellow; Glucose,Urine (UA) Negative (Negative); Ketones,Urine Negative (Negative); Leukocyte Esterase,Urine Trace (Negative); Mucus,Urine Few /hpf; Nitrite,Urine Negative (Negative); PH, Urine 7.5 (5.0-8.0); Protein,Urine 2+ (Negative); RBC,Urine <1 /hpf (0-5); Specific Gravity,Urine 1.022 (1.001-1.035); Squamous Epithelial Cell,Urine 44 /hpf (0-4)
[2018-10-06 14:47] LABS: ALT 103 U/L (9-52); AST 49 U/L (14-36); Albumin 4.1 g/dL (3.5-5.0); Alkaline Phosphatase 68 U/L (38-126); Amylase 58 U/L (30-110); Anion Gap 7 mmol/L; Blood Urea Nitrogen 9 mg/dL (7-17); Calcium 9.8 mg/dL (8.4-10.2); Carbon Dioxide 27 mmol/L (22-30); Chloride 109 mmol/L (98-107); Glucose 100 mg/dL (74-99); Lipase 85 U/L (23-300); Potassium 4.4 mmol/L (3.5-5.1); Sodium 143 mmol/L (137-145); Total Bilirubin 0.6 mg/dL (0.2-1.3); Total Protein 7.9 g/dL (6.3-8.2)
--- NOTE | 2018-10-06 15:14 | XR ---
EXAMINATION TYPE: XR KUB DATE OF EXAM: 10/06/2018 3:03 PM CLINICAL HISTORY: Abdominal pain, nausea and vomiting for 4 days TECHNIQUE: Single upright image of the abdomen is obtained. COMPARISON: 09/18/2013. FINDINGS: Scattered gas is seen in nondilated small bowel loops. Gas and fecal material is seen in no ndilated colon. There is no visceromegaly, pneumoperitoneum, or abnormal calcification appreciated. T he lung bases are clear and the osseous structures are intact. IMPRESSION: Nonobstructive bowel gas pattern.
[2018-10-06 15:45] VITALS: BP 100/67; PULSE 73; RESP 16
[2018-10-06 16:12] VITALS: TEMP 98
== END 2018-10-06 16:11 | disposition home or self-care (01) ==
LOC: EC 13:36
DX: R11.2 Nausea with vomiting, unspecified (principal); R19.7 Diarrhea, unspecified; R10.9 Unspecified abdominal pain; R74.8 Abnormal levels of other serum enzymes; F17.200 Nicotine dependence, unspecified, uncomplicated; Z88.6 Allergy status to analgesic agent
CPT/HCPCS: 36415; 80053; 82150; 83690; 85025; 81001; 81025; 74018; 99284; 96374; 96375; 96361 ×2; J2405

== ENCOUNTER 2019-01-07 12:34 | Emergency (ER) | payer OTHER ==
[2019-01-07 12:42] VITALS: TEMP 98.8
[2019-01-07] MEDS ORDERED: SODIUM CHLORIDE 0.9% 1,000 ML IV STA (13:02)
[2019-01-07] MEDS ORDERED: ONDANSETRON 4 MG/2 ML VIAL IVP STA (13:02)
--- NOTE | 2019-01-07 13:06 | ED ---
Nausea/Vomiting/Diarrhea HPI - General Chief complaint: Nausea/Vomiting/Diarrhea Stated complaint: vomiting Time Seen by Provider: 01/07/19 12:44 Source: patient, family, RN notes reviewed, old records reviewed Mode of arrival: ambulatory Limitations: no limitations - History of Present Illness Initial comments: Patient is a 23-year-old female present to return today with complaints of nausea and vomiting. Patient reports that she's been having intermittent diarrhea for the past few months. Patient states that she has had no fevers or chills. She reports that today she took some Imodium to stop her diarrhea which then caused her to have multiple episodes of vomiting. She's been unable to hold any food down for the past 24-48 hours. She reports that she sees double injection. She denies any other symptoms. - Related Data Home Medications Medication Instructions Recorded Confirmed Acetaminophen [Tylenol Extra 500 mg PO TID PRN 01/07/19 01/07/19 Strength] Cholecalciferol [Vitamin D3] 1,000 unit PO DAILY 01/07/19 01/07/19 Milk Thistle 150 mg PO DAILY 01/07/19 01/07/19 [place]-3 Fatty Acids/Fish Oil [Fish 1 cap PO DAILY 01/07/19 01/07/19 Oil 1,000 mg Softgel] Previous Rx's Medication Instructions Recorded Dicyclomine [Bentyl] 10 mg PO TID #15 capsule 01/07/19 Ondansetron HCl [Zofran] 4 mg PO Q8HR PRN #15 tablet 01/07/19 Allergies Allergy/AdvReac Type Severity Reaction Status Date / Time ibuprofen Allergy Swelling Verified 01/07/19 13:11 tramadol Allergy Unknown Verified 01/07/19 13:11 Review of Systems ROS Statement: Those systems with pertinent positive or pertinent negative responses have been documented in the HPI. ROS Other: All systems not noted in ROS Statement are negative. Past Medical History Past Medical History: No Reported History Additional Past Medical History / Comment(s): hepatitis C History of Any Multi-Drug Resistant Organisms: None Reported Past Surgical History: Tonsillectomy Past Psychological History: Schizophrenia Smoking Status: Current every day smoker Past Alcohol Use History: Occasional Past Drug Use History: None Reported - Past Family History Father Additional Family Medical History / Comment(s): Father is alive in his 50s with no major medical problems. Mother Additional Family Medical History / Comment(s): Mother is alive at age 57 with no major medical problems. Patient does not have any brothers or sisters. Patient does not have any children. General Exam - General Exam Comments Initial Comments: Well-appearing 23-year-old female. No distress. Limitations: no limitations General appearance: alert, in no apparent distress Head exam: Present: atraumatic, normocephalic, normal inspection Eye exam: Present: normal appearance, PERRL, EOMI. Absent: scleral icterus, conjunctival injection, periorbital swelling ENT exam: Present: normal exam, mucous membranes moist Neck exam: Present: normal inspection. Absent: tenderness, meningismus, lymphadenopathy Respiratory exam: Present: normal lung sounds bilaterally. Absent: respiratory distress, wheezes, rales, rhonchi, stridor Cardiovascular Exam: Present: regular rate, normal rhythm, normal heart sounds. Absent: systolic murmur, diastolic murmur, rubs, gallop, clicks Course Vital Signs 01/07/19 12:40 Temperature 98.8 F Pulse Rate 114 H Respiratory 20 Rate Blood Pressure 126/83 O2 Sat by Pulse 99 Oximetry Medical Decision Making - Medical Decision Making Patient is a 23-year-old female presents to return today with complaints of diarrhea. Patient has had diarrhea intermittently for the past few months. She states that a she's been having nausea and vomiting for the past 4 hours. At this time patient's has had no vomiting while in ER. She is no significant abdominal pain or tenderness. Patient's labwork was reviewed. She does have some mildly elevated liver enzymes. She reports she is scheduled for outpatient ultrasound. Patient is advised to have close follow-up with primary care physician. We'll discharge the Patient with Bentyl for concerns for IBS. Also prescribed the Patient Zofran for nausea. Discussed strict return parameters and close follow-up with PCP. - Lab Data Result diagrams: 01/07/19 13:20 01/07/19 13:20 Lab Results 01/07/19 01/07/19 01/07/19 Range/Units 13:05 13:20 13:20 WBC 9.7 (3.8-10.6) k/uL RBC 5.37 (3.80-5.40) m/uL Hgb 16.2 H (11.4-16.0) gm/dL Hct 48.4 H (34.0-46.0) % MCV 90.2 (80.0-100.0) fL MCH 30.2 (25.0-35.0) pg MCHC 33.4 (31.0-37.0) g/dL RDW 13.8 (11.5-15.5) % Plt Count 322 (150-450) k/uL Neutrophils % 59 % Lymphocytes % 30 % Monocytes % 6 % Eosinophils % 1 % Basophils % 1 % Neutrophils # 5.7 (1.3-7.7) k/uL Lymphocytes # 2.9 (1.0-4.8) k/uL Monocytes # 0.6 (0-1.0) k/uL Eosinophils # 0.1 (0-0.7) k/uL Basophils # 0.1 (0-0.2) k/uL Sodium 142 (137-145) mmol/L Potassium 4.5 (3.5-5.1) mmol/L Chloride 109 H (98-107) mmol/L Carbon Dioxide 23 (22-30) mmol/L Anion Gap 10 mmol/L BUN 13 (7-17) mg/dL Creatinine 0.92 (0.52-1.04) mg/dL Est GFR (CKD-EPI)AfAm >90 (>60 ml/min/1.73 sqM) Est GFR (CKD-EPI)NonAf 87 (>60 ml/min/1.73 sqM) Glucose 83 (74-99) mg/dL Calcium 10.6 H (8.4-10.2) mg/dL Total Bilirubin 0.9 (0.2-1.3) mg/dL AST 66 H (14-36) U/L ALT 132 H (9-52) U/L Alkaline Phosphatase 80 (38-126) U/L Total Protein 8.8 H (6.3-8.2) g/dL Albumin 4.9 (3.5-5.0) g/dL Amylase 65 (30-110) U/L Lipase 108 (23-300) U/L Urine Color Yellow Urine Appearance Cloudy H (Clear) Urine pH 6.0 (5.0-8.0) Ur Specific [place] 1.021 (1.001-1.035) Urine Protein 2+ H (Negative) Urine Glucose (UA) Negative (Negative) Urine Ketones Negative (Negative) Urine Blood Trace H (Negative) Urine Nitrite Negative (Negative) Urine Bilirubin Negative (Negative) Urine Urobilinogen <2.0 (<2.0) mg/dL Ur Leukocyte Esterase Small H (Negative) Urine RBC 5 (0-5) /hpf Urine WBC 27 H (0-5) /hpf Ur Squamous Epith Cells 36 H (0-4) /hpf Urine Bacteria Rare H (None) /hpf Urine Mucus Many H (None) /hpf Urine Sperm Rare (None) /hpf Disposition Clinical Impression: IBS (irritable bowel syndrome), Nausea & vomiting Disposition: HOME SELF-CARE Condition: Good Instructions (If sedation given, give patient instructions): Acute Nausea and Vomiting (ED), Acute Diarrhea (ED) Additional Instructions: Patient advised to follow up with your primary care physician. Use the Bentyl as needed for abdominal spasms and diarrhea. Patient can also take the nausea medicine as prescribed. Return to the emergency department if any alarming signs or symptoms occur. Prescriptions: Dicyclomine [Bentyl] 10 mg PO TID #15 capsule Ondansetron HCl [Zofran] 4 mg PO Q8HR PRN #15 tablet PRN Reason: Nausea Is patient prescribed a controlled substance at d/c from ED?: No Referrals: Rimma Bedolla MD [Primary Care Provider] - 1-2 days Time of Disposition: 14:27
[2019-01-07 13:40] LABS: Basophils # (A) 0.1 k/uL (0-0.2); Basophils % (A) 1 %; Eosinophils # (A) 0.1 k/uL (0-0.7); Eosinophils % (A) 1 %; HCT 48.4 % (34.0-46.0); HGB 16.2 gm/dL (11.4-16.0); Lymphocytes # (A) 2.9 k/uL (1.0-4.8); Lymphocytes % (A) 30 %; MCH 30.2 pg (25.0-35.0); MCHC 33.4 g/dL (31.0-37.0); MCV 90.2 fL (80.0-100.0); Mean Platelet Volume 7.1; Monocytes # (A) 0.6 k/uL (0-1.0); Monocytes % (A) 6 %; Neutrophils # (A) 5.7 k/uL (1.3-7.7); Neutrophils % (A) 59 %; Platelet Count 322 k/uL (150-450); RBC 5.37 m/uL (3.80-5.40); RDW 13.8 % (11.5-15.5); WBC 9.7 k/uL (3.8-10.6)
[2019-01-07 13:47] LABS: Appearance,Urine Cloudy (Clear); Bacteria,Urine Rare /hpf; Bilirubin,Urine Negative (Negative); Blood,Urine Trace (Negative); Color,Urine Yellow; Glucose,Urine (UA) Negative (Negative); Ketones,Urine Negative (Negative); Leukocyte Esterase,Urine Small (Negative); Mucus,Urine Many /hpf; Nitrite,Urine Negative (Negative); Protein,Urine 2+ (Negative); RBC,Urine 5 /hpf (0-5); Specific Gravity,Urine 1.021 (1.001-1.035); Sperm,Urine Rare /hpf; Squamous Epithelial Cell,Urine 36 /hpf (0-4); Urobilinogen,Urine <2.0 mg/dL (<2.0)
[2019-01-07 13:51] LABS: ALT 132 U/L (9-52); AST 66 U/L (14-36); Albumin 4.9 g/dL (3.5-5.0); Alkaline Phosphatase 80 U/L (38-126); Amylase 65 U/L (30-110); Anion Gap 10 mmol/L; Blood Urea Nitrogen 13 mg/dL (7-17); Calcium 10.6 mg/dL (8.4-10.2); Carbon Dioxide 23 mmol/L (22-30); Chloride 109 mmol/L (98-107); Glucose 83 mg/dL (74-99); Lipase 108 U/L (23-300); Potassium 4.5 mmol/L (3.5-5.1); Sodium 142 mmol/L (137-145); Total Bilirubin 0.9 mg/dL (0.2-1.3); Total Protein 8.8 g/dL (6.3-8.2)
[2019-01-07 15:29] VITALS: BP 92/58; PULSE 95; RESP 18
== END 2019-01-07 15:26 | disposition home or self-care (01) ==
LOC: EC 12:34
DX: K58.0 Irritable bowel syndrome with diarrhea (principal); R11.2 Nausea with vomiting, unspecified; R79.89 Other specified abnormal findings of blood chemistry; F17.200 Nicotine dependence, unspecified, uncomplicated; Z86.19 Personal history of other infectious and parasitic diseases; Z79.899 Other long term (current) drug therapy; Z88.6 Allergy status to analgesic agent; Z88.5 Allergy status to narcotic agent
CPT/HCPCS: 36415; 80053; 82150; 83690; 85025; 81001; 87086; 99284; 96374; 96361 ×2; J2405

== ENCOUNTER → 2019-01-14 | Outpatient (CLI) | payer OTHER ==
--- NOTE | 2019-01-14 12:45 | US ---
EXAMINATION TYPE: US abdomen complete DATE OF EXAM: 01/14/2019 COMPARISON: NONE CLINICAL HISTORY: 23-year-old female R10.31,Right lower quadrant pain R10.11Right upper. TECHNIQUE: Multiple sonographic images of the abdomen are obtained. FINDINGS: EXAM MEASUREMENTS: Liver Length: 12.6 cm Gallbladder Wall: 0.2 cm CBD: 0.3 cm Spleen: 11.0 cm Right Kidney: 10.4 x 3.9 x 4.1 cm Left Kidney: 10.3 x 4.6 x 5.4 cm Pancreas: No gross abnormality. Liver: wnl Gallbladder: No stones seen Evidence for sonographic Aplm's sign: No CBD: wnl Spleen: wnl Right Kidney: No hydronephrosis. Left Kidney: No hydronephrosis. Upper IVC: wnl Abd Aorta: wnl IMPRESSION: Unremarkable sonographic examination of the abdomen.
== END | disposition home or self-care (01) ==
LOC: RADUSWWP 09:20
PROVIDERS: ATTEND Family Medicine
DX: R10.31 Right lower quadrant pain (principal); R10.11 Right upper quadrant pain
CPT/HCPCS: 76700

== ENCOUNTER → 2019-04-08 | Outpatient (CLI) | payer OTHER ==
[2019-04-08 14:50] LABS: Basophils # (A) 0.1 k/uL (0-0.2); Basophils % (A) 1 %; Eosinophils # (A) 0.1 k/uL (0-0.7); Eosinophils % (A) 1 %; HCT 49.8 % (34.0-46.0); HGB 15.8 gm/dL (11.4-16.0); Lymphocytes # (A) 2.5 k/uL (1.0-4.8); Lymphocytes % (A) 32 %; MCH 28.5 pg (25.0-35.0); MCHC 31.7 g/dL (31.0-37.0); MCV 89.7 fL (80.0-100.0); Mean Platelet Volume 6.9; Monocytes # (A) 0.5 k/uL (0-1.0); Monocytes % (A) 6 %; Neutrophils # (A) 4.4 k/uL (1.3-7.7); Neutrophils % (A) 57 %; Platelet Count 318 k/uL (150-450); RBC 5.55 m/uL (3.80-5.40); RDW 14.4 % (11.5-15.5); WBC 7.8 k/uL (3.8-10.6)
[2019-04-08 19:00] LABS: Albumin 4.7 g/dL (3.80-4.90); Albumin/Globulin Ratio 1.62 (1.60-3.17); Anion Gap 6.6 mmol/L (4.00-12.00); Calcium 10.4 mg/dL (8.7-10.3); Carbon Dioxide 26.4 mmol/L (21.6-31.8); Globulin 2.9 g/dL (1.6-3.3); LDL Cholesterol,Calculated 91.2 mg/dL (0.0-131.0); Potassium 4.1 mmol/L (3.5-5.5); Total Bilirubin 0.5 mg/dL (0.3-1.2); Total Protein 7.6 g/dL (6.2-8.2); VLDL Calculation 23.8 mg/dL (5.00-40.00)
[2019-04-08 20:26] LABS: Hemoglobin A1C 5.5 % (4.0-6.0)
== END | disposition home or self-care (01) ==
LOC: LABWHC1 13:25
PROVIDERS: ATTEND Family Medicine
DX: Z51.81 Encounter for therapeutic drug level monitoring (principal); Z79.899 Other long term (current) drug therapy
CPT/HCPCS: 36415; 80053; 80061; 83036; 84443; 85025